=== PATIENT | female | born 1930 | race American Indian/Alaskan Native ===

== ENCOUNTER 2020-01-18 21:21 | Inpatient (IN) | payer MEDICARE ==
[2020-01-18] MEDS ORDERED: ASPIRIN 325 MG TAB PO ONE (21:33)
--- NOTE | 2020-01-18 21:36 | Emergency Department Report ---
ED Chest Pain HPI - General Chief Complaint: Chest Pain Stated Complaint: BRADLY PUI?: Yes Time Seen by Provider: 01/18/20 21:32 Source: EMS, old records reviewed Mode of arrival: Stretcher Limitations: Altered Mental Status, Physical Limitation - History of Present Illness Initial Comments: Patient is an 89-year-old female that presents emergency room with altered mental status, chest pain, shortness of breath, hypoxia. Patient brought in by EMS. Report received from EMS. Patient was transferred here [facility]. Patient's complaint was chest pain and shortness of breath. Patient was found to be hypoxic by EMS. Patient is currently altered. Patient is currently oriented x1. MD Complaint: chest pain -: Sudden Severity scale (0 -10): 0 - Related Data Allergies Allergy/AdvReac Type Severity Reaction Status Date / Time amoxicillin Allergy Unknown Verified 12/08/19 12:14 codeine Allergy Unknown Verified 12/08/19 12:14 diphenhydramine Allergy Unknown Verified 12/08/19 12:14 pentazocine Allergy Unknown Verified 12/08/19 12:14 propoxyphene Allergy Unknown Verified 12/08/19 12:14 Sulfa (Sulfonamide Allergy Unknown Verified 12/08/19 12:14 Antibiotics) triamterene Allergy Unknown Verified 12/08/19 12:14 Heart Score - HEART Score History: Moderately suspicious EKG: Normal Age: > 65 Risk factors: > 3 risk factors or hx of atherosclerotic disease Troponin: < normal limit HEART Score: 5 ED Review of Systems ROS: Stated complaint: BRADLY Other details as noted in HPI Comment: Unobtainable due to pts medical conditions ED Past Medical Hx - Past Medical History Previous Medical History?: Yes Hx Hypertension: Yes Hx Congestive Heart Failure: Yes Hx Dementia: Yes - Surgical History Past Surgical History?: No - Family History Family history: no significant - Social History Smoking Status: Unknown if ever smoked Substance Use Type: None ED Physical Exam - General Limitations: Altered Mental Status, Physical Limitation General appearance: alert, in no apparent distress - Head Head exam: Present: atraumatic, normocephalic - Eye Eye exam: Present: normal appearance - ENT ENT exam: Present: mucous membranes moist - Neck Neck exam: Present: normal inspection - Respiratory Respiratory exam: Present: normal lung sounds bilaterally. Absent: respiratory distress - Cardiovascular Cardiovascular Exam: Present: regular rate, normal rhythm. Absent: systolic murmur, diastolic murmur, rubs, gallop - GI/Abdominal GI/Abdominal exam: Present: soft, normal bowel sounds. Absent: distended, tenderness, guarding - Extremities Exam Extremities exam: Present: normal inspection - Back Exam Back exam: Present: normal inspection - Neurological Exam Neurological exam: Present: altered (Patient is oriented x1) - Expanded Neurological Exam Expanded Best Eye Response ([place]): (2) open to pain Best Motor Response ([place]): (6) obeys commands Best Verbal Response ([place]): (4) confused conversation [place] Total: 12 - Psychiatric Psychiatric exam: Present: normal affect, normal mood - Skin Skin exam: Present: warm, dry, intact, normal color. Absent: rash ED Course Vital Signs 01/18/20 21:28 Temperature 97.8 F Pulse Rate 68 Respiratory 16 Rate Blood Pressure 144/71 [Left] O2 Sat by Pulse 99 Oximetry - Reevaluation(s) Reevaluation #1: Initial evaluation done. Patient found to be hypoxic. Patient is 88 to 90% on room air. Patient placed on 2 to 3 L. 01/18/20 21:32 Reevaluation #2: Patient's oxygen saturation improved with oxygen. Patient resting in bed comfortably. Patient will be given antibiotics and fluids. I discussed all results with patient. I discussed plan of care with patient. Patient agrees with plan of care and admission. Patient to be admitted to the hospitalist service. 01/18/20 23:33 - Consultations Consultation #1: Hospitalist consulted for admission. Hospitalist to admit patient. 01/18/20 23:33 Consultation #2: COVID order set placed. ID consult placed. 01/18/20 23:39 ITALO score - Italo Score Age > 65: (1) Yes Aspirin use within the Past 7 Days: (1) Yes 3 or more CAD Risk Factors: (1) Yes 2 or more Angina events in past 24 hrs: (0) No Known CAD with more than 50% Stenosis: (0) No Elevated Cardiac Markers: (0) No ST Deviation Greater than 0.5mm: (0) No ITALO Score: 3 ED Medical Decision Making - Lab Data Result diagrams: 01/18/20 21:38 01/18/20 21:38 - EKG Data -: EKG Interpreted by Me EKG shows normal: sinus rhythm - Radiology Data Radiology results: report reviewed CHEST 1 VIEW INDICATION / CLINICAL INFORMATION: Chest Pain. COMPARISON: None available. FINDINGS: SUPPORT DEVICES: None. HEART / MEDIASTINUM: Probably enlarged left border is obscured. LUNGS / PLEURA: There is moderate sized left pleural effusion present. I suspect there is parenchymal disease within the left lung base. Right lung is clear. No interstitial pulmonary edema. No pneumothorax. ADDITIONAL FINDINGS: No significant additional findings. IMPRESSION: 1. Prominent pleural-parenchymal disease within the left lung probably representing a combination of pneumonia and pleural effusion. Close radiographic follow-up is recommended as underlying neoplasm cannot be excluded. CT head/brain wo con INDICATION / CLINICAL INFORMATION: Altered Mental Status. TECHNIQUE: Axial CT imaging of the brain was obtained without contrast. Coronal and sagittal reformatted imaging obtained and reviewed. All CT scans at this location are performed using CT dose reduction for ALARA by means of automated exposure control. COMPARISON: Prior head CT 12/08/2019 FINDINGS: No intracranial hemorrhage, mass, or midline shift. No extra-axial fluid collection or suggestion of acute territorial infarction. Ventricular system and basilar cisterns are normal for the degree of atrophy present. No definite area of acute ischemia. There is age-a ppropriate cerebral and cerebellar atrophy. 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 This finding is unchanged compared with prior exams. Visualized paranasal sinuses and mastoid air cells are well aerated and clear. No calvarial abnormality. IMPRESSION: 1. Age-related changes. 2. No acute intracranial abnormality or significant interval change from prior exam. - Medical Decision Making Patient is an 89-year-old female that presents emergency room with complaints of chest pain shortness of breath. Patient is altered. It is unclear what the patient's baseline mentation is. Patient presents from a nursing facility. Due to the patient's altered mental status a CT of the head was done it was negative for acute findings. Patient's labs were done and they were essentially unremarkable except for anemia. Patient had a chest x-ray which shows a left- sided pneumonia. Patient given antibiotics and fluids. Due to the fact that there is a risk for a COVID-19 infection, and ID consult was placed as well as the COVID protocol. Patient given Zithromax and Decadron and Rocephin. Patient admitted to the hospitalist service. Upon initial evaluation, the patient was found to be hypoxic was placed on oxygen via nasal cannula and her oxygen and saturation improved. - Differential Diagnosis Pneumonia, chest pain, shortness of breath, hypoxia, COVID, Critical Care Time: Yes Critical care time in (mins) excluding proc time.: 35 Critical care attestation.: If time is entered above; I have spent that time in minutes in the direct care of this critically ill patient, excluding procedure time. Critical Care Time: 35 minutes ED Disposition Clinical Impression: Person under investigation for COVID-19, SOB (shortness of breath), Hypoxia Pneumonia Qualifiers: Pneumonia type: due to unspecified organism Laterality: left Lung location: unspecified part of lung Qualified Code(s): J18.9 - Pneumonia, unspecified organism Chest pain Qualifiers: Chest pain type: unspecified Qualified Code(s): R07.9 - Chest pain, unspecified Anemia Qualifiers: Anemia type: unspecified type Qualified Code(s): D64.9 - Anemia, unspecified Altered mental state Qualifiers: Altered mental status type: unspecified Qualified Code(s): R41.82 - Altered mental status, unspecified Disposition: DC-09 OP ADMIT IP TO THIS HOSP Is pt being admited?: Yes Does the pt Need Aspirin: No Condition: Critical Time of Disposition: 23:39
[2020-01-18 22:22] LABS: Alanine Aminotransferase 17 units/L (7-56); Albumin 2.9 g/dL (3.9-5); Blood Urea Nitrogen 17 mg/dL (7-17); Calcium 8.5 mg/dL (8.4-10.2); Hemolysis Index 8
[2020-01-18 22:26] LABS: BUN/Creatinine Ratio 28
[2020-01-18 22:38] LABS: Basophils % (Auto) 0.2 % (0.0-1.8); Eosinophils % (Auto) 0.2 % (0.0-4.3); Hematocrit 27.4 % (30.3-42.9); Lymphocytes % (Auto) 10.1 % (13.4-35.0); Mean Corpuscular HGB Conc 33 % (30-34); Mean Corpuscular Volume 82 fl (79-97); Monocytes # (Auto) 1.2 K/mm3 (0.0-0.8); Monocytes % (Auto) 12.1 % (0.0-7.3); Platelet Count 290 K/mm3 (140-440); Red Blood Count 3.34 M/mm3 (3.65-5.03); Red Cell Distribution Width 17.1 % (13.2-15.2)
--- NOTE | 2020-01-18 22:57 | Cat Scan Report ---
CT head/brain wo con INDICATION / CLINICAL INFORMATION: Altered Mental Status. TECHNIQUE: Axial CT imaging of the brain was obtained without contrast. Coronal and sagittal reformatted imaging obtained and reviewed. All CT scans at this location are performed using CT dose reduction for ALAR A by means of automated exposure control. COMPARISON: Prior head CT 12/08/2019 FINDINGS: No intracranial hemorrhage, mass, or midline shift. No extra-axial fluid collection or suggestion of acute territorial infarction. Ventricular system and basilar cisterns are normal for the degree of at rophy present. No definite area of acute ischemia. There is age-appropriate cerebral and cerebellar a trophy. 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 This finding is unchanged compared with prior exams. Visualized paranasal sinuses and mastoid air cells are well aerated and clear. No calvarial abnormali ty. IMPRESSION: 1. Age-related changes. 2. No acute intracranial abnormality or significant interval change from prior exam. Signer Name: Leora Flores MD Signed: 01/18/2020 10:52 PM Workstation Name: [id number]
--- NOTE | 2020-01-18 23:04 | XRay Report ---
CHEST 1 VIEW INDICATION / CLINICAL INFORMATION: Chest Pain. COMPARISON: None available. FINDINGS: SUPPORT DEVICES: None. HEART / MEDIASTINUM: Probably enlarged left border is obscured. LUNGS / PLEURA: There is moderate sized left pleural effusion present. I suspect there is parenchymal disease within the left lung base. Right lung is clear. No interstitial pulmonary edema. No pneumoth orax. ADDITIONAL FINDINGS: No significant additional findings. IMPRESSION: 1. Prominent pleural-parenchymal disease within the left lung probably representing a combination of pneumonia and pleural effusion. Close radiographic follow-up is recommended as underlying neoplasm ca nnot be excluded. Signer Name: Leora Flores MD Signed: 01/18/2020 11:00 PM Workstation Name: [id number]
[2020-01-18] MEDS ORDERED: cefTRIAXone/NS 2 GM/100 ML 2 GM/100 ML BAG IV ONE (23:32)
[2020-01-18] MEDS ORDERED: dexAMETHasone 4 MG/ML VIAL IV ONE (23:32)
[2020-01-18] MEDS ORDERED: AZITHROMYCIN 500 MG in SODIUM CHLORIDE 0.9% 250ML 250 ML IV ONE (23:32)
[2020-01-18] MEDS ORDERED: SODIUM CHLORIDE 0.9% 500 ML 500 ML IV ONE (23:36)
[2020-01-19] MEDS ORDERED: MAGNESIUM HYDROXIDE (MOM) ORAL LIQD UDC PO PRN (00:55)
[2020-01-19] MEDS ORDERED: ONDANSETRON 4 MG/2 ML INJ IV PRN (00:55)
--- NOTE | 2020-01-19 01:15 | History and Physical Report ---
History of Present Illness Date of examination: 01/19/20 Date of admission: 01/19/2020 Chief complaint: Aleterd Mental Status History of present illness: 89-year-old -[place] female with known history of hypertension, CHF and dementia presents to the emergency room today with altered mental status, chest pain and shortness of breath. [facility] She was found to be slightly hypoxic by EMS and also was only oriented x1. Patient unable to give any good history and most of the history was obtained from the ER physician. Past History Past Medical History: heart failure, hypertension, other (Dementia) Past Surgical History: Other Social history: other (Unknown) Family history: other (Unknown) Medications and Allergies Allergies Allergy/AdvReac Type Severity Reaction Status Date / Time amoxicillin Allergy Unknown Verified 12/08/19 12:14 codeine Allergy Unknown Verified 12/08/19 12:14 diphenhydramine Allergy Unknown Verified 12/08/19 12:14 pentazocine Allergy Unknown Verified 12/08/19 12:14 propoxyphene Allergy Unknown Verified 12/08/19 12:14 Sulfa (Sulfonamide Allergy Unknown Verified 12/08/19 12:14 Antibiotics) triamterene Allergy Unknown Verified 12/08/19 12:14 Active Meds: Active Medications Acetaminophen (Tylenol) 650 mg PO Q4H PRN PRN Reason: Pain MILD(1-3)/Fever >100.5/MURCIA Ceftriaxone Sodium (Rocephin/Ns 2 Gm/100 Ml) 2 gm in 100 mls @ 200 mls/hr IV Q24HR YOLANDA; Protocol Azithromycin 500 mg/ Sodium (Chloride) 250 mls @ 250 mls/hr IV Q24HR YOLANDA; Protocol Magnesium Hydroxide (Milk Of Magnesia) 30 ml PO Q4H PRN PRN Reason: Constipation Ondansetron HCl (Zofran) 4 mg IV Q8H PRN PRN Reason: Nausea And Vomiting Sodium Chloride (Sodium Chloride Flush Syringe 10 Ml) 10 ml IV BID YOLANDA Sodium Chloride (Sodium Chloride Flush Syringe 10 Ml) 10 ml IV PRN PRN PRN Reason: LINE FLUSH Review of Systems Constitutional: no fever, no chills Cardiovascular: chest pain, no palpitations Respiratory: shortness of breath, no cough Gastrointestinal: no abdominal pain, no nausea, no vomiting, no diarrhea Genitourinary Female: no pelvic pain, no flank pain, no dysuria, no hematuria Musculoskeletal: no neck pain, no low back pain Integumentary: no rash, no pruritis Neurological: no headaches, no confusion Psychiatric: no anxiety, no depression Exam - Constitutional Vitals: Temp Pulse Resp BP Pulse Ox 97.8 F 68 16 144/71 99 01/18/20 21:28 01/18/20 21:28 01/18/20 21:28 01/18/20 21:28 01/18/20 21:28 General appearance: Present: no acute distress, well-nourished - EENT Eyes: Present: PERRL, EOM intact. Absent: scleral icterus ENT: hearing intact, clear oral mucosa, dentition normal - Neck Neck: Present: supple, normal ROM - Respiratory Respiratory effort: normal Respiratory: left: diminished - Cardiovascular Rhythm: regular Heart Sounds: Present: S1 & S2. Absent: gallop, systolic murmur, diastolic murmur, rub - Extremities Extremities: no ischemia, pulses intact, No edema, Full ROM Peripheral Pulses: within normal limits - Abdominal General gastrointestinal: Present: soft, non-tender, non-distended, normal bowel sounds - Integumentary Integumentary: Present: clear, warm, dry. Absent: rash - Musculoskeletal Musculoskeletal: strength equal bilaterally - Psychiatric Psychiatric: appropriate mood/affect, intact judgment & insight, memory intact, cooperative - Neurologic Neurologic: CNII-XII intact, no focal deficits, moves all extremities HEART Score - HEART Score EKG: Normal Age: > 65 Risk factors: > 3 risk factors or hx of atherosclerotic disease Troponin: Troponin T < 0.010 ng/mL (0.00-0.029) 01/18/20 21:38 Troponin: < normal limit Results - Labs CBC & Chem 7: 01/18/20 21:38 01/19/20 00:15 Labs: Abnormal lab results 01/18/20 01/18/20 Range/Units 21:38 21:38 RBC 3.34 L (3.65-5.03) M/mm3 Hgb 9.0 L (10.1-14.3) gm/dl Hct 27.4 L (30.3-42.9) % MCH 27 L (28-32) pg RDW 17.1 H (13.2-15.2) % Lymph % (Auto) 10.1 L (13.4-35.0) % [place] % (Auto) 12.1 H (0.0-7.3) % Lymph # 1.0 L (1.2-5.4) K/mm3 [place] # 1.2 H (0.0-0.8) K/mm3 Seg Neutrophils % 77.4 H (40.0-70.0) % Potassium 3.4 L (3.6-5.0) mmol/L Glucose 110 H (65-100) mg/dL Albumin 2.9 L (3.9-5) g/dL Assessment and Plan - Patient Problems (1) Pneumonia Current Visit: Yes Status: Acute Plan to address problem: Patient placed on empiric IV antibiotics. We will await blood culture result. (2) Altered mental state Current Visit: Yes Status: Acute Plan to address problem: Possibly secondary to the underlying infection. Will monitor mental status. Patient also has a baseline history of dementia. (3) Chest pain Current Visit: Yes Status: Acute Plan to address problem: We will monitor EKG and also check serial cardiac enzymes. Patient will be placed on aspirin, sublingual nitroglycerin and IV morphine as needed for chest pain. (4) Hypoxia Current Visit: Yes Status: Acute Plan to address problem: We will place patient on oxygen and keep O2 saturation greater or equal to 94%. (5) DVT prophylaxis Current Visit: Yes Status: Acute (6) Full code status Current Visit: Yes Status: Acute (7) Person under investigation for COVID-19 Current Visit: Yes Status: Acute Plan to address problem: We will request evaluation by infectious disease. We will place patient on isolation precautions. Patient also placed on IV steroid.
--- NOTE | 2020-01-19 09:39 | Event Note ---
Date: 01/19/20 patient seen and examined 89-year-old black female with history of hypertension CHF and dementia presented to ER from [facility] for altered mental status chest pain and shortness of breath. Chest x-ray suggestive for left lung pneumonia and effusion. COVID-19 test ordered, continue to follow inflammatory markers and IV antibiotics for now.
[2020-01-19] MEDS ORDERED: dexAMETHasone 4 MG/ML VIAL IV SCH (10:00)
[2020-01-19] MEDS: cefTRIAXone/NS 2 GM/100 ML 2 GM/100 ML BAG IV SCH (10:58)
[2020-01-19] MEDS: AZITHROMYCIN 500 MG in SODIUM CHLORIDE 0.9% 250ML 250 ML IV SCH (14:07)
[2020-01-19] MEDS: HEPARIN 5,000 UNIT/1 ML VIAL SUB-Q SCH ×2 (14:09→21:42)
--- NOTE | 2020-01-19 15:05 | Consultation ---
History of Present Illness - Reason for Consult Consult date: 01/19/20 pneumonia Requesting physician: STEPHANY DONOHUE III - History of Present Illness The patient is an 89-year-old female, residential resident with hypertension, CHF, dementia admitted to the hospital with altered mental status. She was found to be slightly hypoxic by EMS. Chest x-ray showed possible left lower lobe pneumonia and pleural effusion. Infectious diseases was consulted for additional evaluation. She has otherwise been afebrile. Labs showed no leukocytosis. D-dimer is elevated at 5313, CRP 19.0, ferritin 375, LDH 321, procalcitonin 0.24. COVID-19 test came back negative. At the time of my evaluation, patient is in no respiratory distress, she is on room air. Review of Systems: Limited due to dementia Past History Past Medical History: heart failure, hypertension, other (Dementia) Past Surgical History: Other Social history: other (Unknown) Family history: other (Unknown) Medications and Allergies Allergies Allergy/AdvReac Type Severity Reaction Status Date / Time amoxicillin Allergy Unknown Verified 12/08/19 12:14 codeine Allergy Unknown Verified 12/08/19 12:14 diphenhydramine Allergy Unknown Verified 12/08/19 12:14 pentazocine Allergy Unknown Verified 12/08/19 12:14 propoxyphene Allergy Unknown Verified 12/08/19 12:14 Sulfa (Sulfonamide Allergy Unknown Verified 12/08/19 12:14 Antibiotics) triamterene Allergy Unknown Verified 12/08/19 12:14 Active Meds: Active Medications Acetaminophen (Tylenol) 650 mg PO Q4H PRN PRN Reason: Pain MILD(1-3)/Fever >100.5/MURCIA Dexamethasone (Decadron) 6 mg IV Q24HR YOLANDA Last Admin: 01/19/20 10:58 Dose: 6 mg Documented by: Heparin Sodium (Porcine) (Heparin) 5,000 unit SUB-Q Q8HR YOLANDA Last Admin: 01/19/20 14:09 Dose: 5,000 unit Documented by: Ceftriaxone Sodium (Rocephin/Ns 2 Gm/100 Ml) 2 gm in 100 mls @ 200 mls/hr IV Q24HR YOLANDA; Protocol Last Admin: 01/19/20 10:58 Dose: 200 mls/hr Documented by: Azithromycin 500 mg/ Sodium (Chloride) 250 mls @ 250 mls/hr IV Q24HR [facility]; Protocol Last Admin: 01/19/20 14:07 Dose: 250 mls/hr Documented by: Magnesium Hydroxide (Milk Of Magnesia) 30 ml PO Q4H PRN PRN Reason: Constipation Ondansetron HCl (Zofran) 4 mg IV Q8H PRN PRN Reason: Nausea And Vomiting Sodium Chloride (Sodium Chloride Flush Syringe 10 Ml) 10 ml IV BID [facility] Last Admin: 01/19/20 10:58 Dose: 10 ml Documented by: Sodium Chloride (Sodium Chloride Flush Syringe 10 Ml) 10 ml IV PRN PRN PRN Reason: LINE FLUSH Physical Examination - Physical Exam Narrative exam: Physical Exam: Constitutional: Awake, confused Head, Ears, Nose: Normocephalic, atraumatic. External ears, nose normal Eyes: Conjunctivae/corneas clear. No icterus. No ptosis. Neck: Supple, no meningeal signs Oral: Unable to examine Cardiovascular: S1, S2 normal. Respiratory: Decreased in left base GI: Soft, non-tender; bowel sounds normal. No peritoneal signs Musculoskeletal: No pedal edema, no cyanosis. Skin: No rash or abscess Hem/Lymphatic: No palpable cervical or supraclavicular nodes. No lymphangitis Psych: no agitation Neurological: Awake, confused - Constitutional Vitals: Vital Signs Temp Pulse Resp BP Pulse Ox 98.1 F 73 22 142/92 94 01/19/20 13:00 01/19/20 13:00 01/19/20 13:00 01/19/20 13:00 01/19/20 13:00 Temperature -Last 24 Hours Temperature 98.1 F Temperature 98.0 F Temperature 97.4 F Temperature 97.4 F Temperature 97.8 F Results - Labs CBC & Chem 7: 01/18/20 21:38 01/19/20 00:15 Labs: Abnormal lab results 01/18/20 01/18/20 01/19/20 Range/Units 21:38 21:38 00:15 RBC 3.34 L (3.65-5.03) M/mm3 Hgb 9.0 L (10.1-14.3) gm/dl Hct 27.4 L (30.3-42.9) % MCH 27 L (28-32) pg RDW 17.1 H (13.2-15.2) % Lymph % (Auto) 10.1 L (13.4-35.0) % [place] % (Auto) 12.1 H (0.0-7.3) % Lymph # 1.0 L (1.2-5.4) K/mm3 [place] # 1.2 H (0.0-0.8) K/mm3 Seg Neutrophils % 77.4 H (40.0-70.0) % D-Dimer 5313.50 H (0-234) ng/mlDDU Potassium 3.4 L (3.6-5.0) mmol/L Glucose 110 H (65-100) mg/dL Ferritin (10.0-200.0) ng/mL Lactate Dehydrogenase (91-180) units/L C-Reactive Protein (0.00-1.30) mg/dL Albumin 2.9 L (3.9-5) g/dL 01/19/20 01/19/20 Range/Units 00:15 00:15 RBC (3.65-5.03) M/mm3 Hgb (10.1-14.3) gm/dl Hct (30.3-42.9) % MCH (28-32) pg RDW (13.2-15.2) % Lymph % (Auto) (13.4-35.0) % [place] % (Auto) (0.0-7.3) % Lymph # (1.2-5.4) K/mm3 [place] # (0.0-0.8) K/mm3 Seg Neutrophils % (40.0-70.0) % D-Dimer (0-234) ng/mlDDU Potassium (3.6-5.0) mmol/L Glucose 102 H (65-100) mg/dL Ferritin 375.4 H (10.0-200.0) ng/mL Lactate Dehydrogenase 321 H (91-180) units/L C-Reactive Protein 19.00 H (0.00-1.30) mg/dL Albumin (3.9-5) g/dL - Imaging and Cardiology Chest x-ray: report reviewed, image reviewed (LLL pneumonia, possible effusion) Assessment and Plan Cultures: COVID PCR: Negative 01/19/2020 blood culture: In process A/P: 89-year-old female, residential resident with hypertension, CHF, dementia admitted to the hospital with altered mental status. She was found to be slightly hypoxic by EMS: #Left lower lobe pneumonia, also possible left pleural effusion #Acute encephalopathy/altered mental status: baseline dementia, seems to be at baseline. #Elevated d-dimer Recs: Check BNP Dexamethasone discontinued. COVID PCR is negative. Ordered UA and urine culture Continue ceftriaxone, azithromycin for 5 days Eval for VTE given elevated d-dimer Paul Shearer MD, FACP [facility] C: [phone] O: [phone] F: [phone]
[2020-01-19] MEDS ORDERED: D5W/0.9% NACL 1,000 ML IV SCH (19:00)
--- NOTE | 2020-01-19 20:21 | Vascular Lab Report ---
DUPLEX DOPPLER LOWER EXTREMITY VEINS, BILATERAL INDICATION / CLINICAL INFORMATION: possible DVt. TECHNIQUE: Duplex doppler imaging was performed through the veins of both lower extremities using venous unruly dandy and other maneuvers. COMPARISON: None available. FINDINGS: RIGHT COMMON FEMORAL VEIN: Negative. RIGHT FEMORAL VEIN: Negative. RIGHT POPLITEAL VEIN: Negative. RIGHT CALF VEINS: Negative. LEFT COMMON FEMORAL VEIN: Negative. LEFT FEMORAL VEIN: Negative. LEFT POPLITEAL VEIN: Negative. LEFT CALF VEINS: Negative. ADDITIONAL FINDINGS: None. IMPRESSION: 1. No sonographic evidence for DVT in either lower extremity. Signer Name: Aren Chang MD Signed: 01/19/2020 8:16 PM Workstation Name: [id number]
[2020-01-19] MEDS: POTASSIUM CHLORIDE 10 MEQ 10 MEQ/100 ML BAG IV SCH ×2 (21:41→23:21)
[2020-01-19] MEDS ORDERED: SODIUM CHLORIDE 0.9% 250ML 250 ML ONE (22:04)
[2020-01-20] MEDS ORDERED: SODIUM CHLORIDE 0.9% 250ML 250 ML IV ONE (05:57)
[2020-01-20] MEDS: HEPARIN 5,000 UNIT/1 ML VIAL SUB-Q SCH ×3 (06:27→21:30)
[2020-01-20] MEDS: cefTRIAXone/NS 2 GM/100 ML 2 GM/100 ML BAG IV SCH (09:13)
[2020-01-20 10:12] LABS: Basophils # (Auto) 0.1 K/mm3 (0.0-0.1); Basophils % (Auto) 0.4 % (0.0-1.8); Hemoglobin 8.8 gm/dl (10.1-14.3); Lymphocytes # (Auto) 0.8 K/mm3 (1.2-5.4); Lymphocytes % (Auto) 6.3 % (13.4-35.0); Mean Corpuscular HGB Conc 33 % (30-34); Mean Corpuscular Volume 81 fl (79-97); Monocytes # (Auto) 0.7 K/mm3 (0.0-0.8); Monocytes % (Auto) 5.2 % (0.0-7.3); Platelet Count 337 K/mm3 (140-440); Red Blood Count 3.31 M/mm3 (3.65-5.03); Red Cell Distribution Width 16.6 % (13.2-15.2)
[2020-01-20 10:19] LABS: INR 1.36 (0.87-1.13)
[2020-01-20 10:26] LABS: Blood Urea Nitrogen 14 mg/dL (7-17); Calcium 8.4 mg/dL (8.4-10.2); Hemolysis Index 8
[2020-01-20 10:29] LABS: BUN/Creatinine Ratio 35
[2020-01-20] MEDS: AZITHROMYCIN 500 MG in SODIUM CHLORIDE 0.9% 250ML 250 ML IV SCH (11:09)
--- NOTE | 2020-01-20 11:31 | Progress Note ---
Assessment and Plan Cultures: COVID PCR: Negative 01/19/2020 blood culture: no growth A/P: 89-year-old female, custodial resident with hypertension, CHF, dementia admitted to the hospital with altered mental status. She was found to be slightly hypoxic by EMS: #Left lower lobe pneumonia, also possible left pleural effusion. BNP 3012, procalcitonin 0.24, CRP 19.0. COVID PCR is negative. #Acute encephalopathy/altered mental status: baseline dementia, seems to be at baseline. #Elevated d-dimer: DVT scan negative. Recs: f/u UA and urine culture, ordered yesterday Continue ceftriaxone, azithromycin for 5 days ?consider left pleural effusion thoracentesis, diagnostic Paul Shearer MD, FACP [facility] ([facility] C: [phone] O: [phone] F: [phone] Subjective Date of service: 01/20/20 Interval history: No fever. Confused. No respiratory distress. On room air. Objective - Exam Narrative Exam: Physical Exam: Constitutional: Awake, confused, no distress Head, Ears, Nose: Normocephalic, atraumatic. External ears, nose normal Eyes: Conjunctivae/corneas clear. No icterus. No ptosis. Neck: Supple, no meningeal signs Oral: Unable to examine Cardiovascular: S1, S2 normal. Respiratory: Decreased in left base GI: Soft, non-tender; bowel sounds normal. No peritoneal signs Musculoskeletal: No pedal edema, no cyanosis. Skin: No rash or abscess Hem/Lymphatic: No palpable cervical or supraclavicular nodes. No lymphangitis Psych: no agitation Neurological: Awake, confused - Constitutional Vitals: Vital Signs Temp Pulse Resp BP Pulse Ox 97.9 F 73 20 186/107 93 01/20/20 03:57 01/19/20 20:57 01/20/20 03:57 01/20/20 03:57 01/19/20 20:57 Temperature -Last 24 Hours Temperature 97.9 F Temperature 98.7 F Temperature 97.4 F Temperature 98.1 F - Labs CBC & Chem 7: 01/20/20 09:09 01/20/20 09:09 Labs: Abnormal lab results 01/19/20 01/20/20 01/20/20 Range/Units 15:23 09:09 09:09 WBC 13.0 H (4.5-11.0) K/mm3 RBC 3.31 L (3.65-5.03) M/mm3 Hgb 8.8 L (10.1-14.3) gm/dl Hct 27.0 L (30.3-42.9) % MCH 27 L (28-32) pg RDW 16.6 H (13.2-15.2) % Lymph % (Auto) 6.3 L (13.4-35.0) % Lymph # 0.8 L (1.2-5.4) K/mm3 Seg Neutrophils % 88.1 H (40.0-70.0) % Seg Neutrophils # 11.4 H (1.8-7.7) K/mm3 PT 17.1 H (12.2-14.9) Sec. INR 1.36 H (0.87-1.13) Sodium (137-145) mmol/L Potassium (3.6-5.0) mmol/L Chloride (98-107) mmol/L Creatinine (0.6-1.2) mg/dL Glucose (65-100) mg/dL NT-Pro-B Natriuret Pep 3012 H (0-900) pg/mL 01/20/20 Range/Units 09:09 WBC (4.5-11.0) K/mm3 RBC (3.65-5.03) M/mm3 Hgb (10.1-14.3) gm/dl Hct (30.3-42.9) % MCH (28-32) pg RDW (13.2-15.2) % Lymph % (Auto) (13.4-35.0) % Lymph # (1.2-5.4) K/mm3 Seg Neutrophils % (40.0-70.0) % Seg Neutrophils # (1.8-7.7) K/mm3 PT (12.2-14.9) Sec. INR (0.87-1.13) Sodium 147 H (137-145) mmol/L Potassium 3.5 L (3.6-5.0) mmol/L Chloride 108.2 H (98-107) mmol/L Creatinine 0.4 L (0.6-1.2) mg/dL Glucose 159 H (65-100) mg/dL NT-Pro-B Natriuret Pep (0-900) pg/mL
--- NOTE | 2020-01-20 15:03 | Progress Note ---
Assessment and Plan --HC associated Pneumonia Patient placed on empiric IV antibiotics. We will await blood culture and sputum cx result. -- Person under investigation for COVID-19 negative for COVID --Acute metabolic encephalopathy Possibly secondary to the underlying infection. Patient also has a baseline history of dementia. Will monitor mental status. -- Chest pain ? We will monitor EKG and also check serial cardiac enzymes. Patient will cont on aspirin, sublingual nitroglycerin and IV morphine as needed for chest pain. -- Acute Hypoxic respiratory failure Patient on oxygen and keep O2 saturation greater or equal to 94%. --Advanced dementia cont supportive care --Left pleural effusion, likely parapneumonic obtain 2d echo, order for thoracentesis --CHF with unknown EF appears compensated, follow 2d echo -- DVT prophylaxis Current Visit: Yes Status: Acute -- Full code status Current Visit: Yes Status: Acute 01/19: patient more alert today but very confused. COVID 19 negative, cont to treat for bacterial PNA. assess for aspiration.. Discussed with daughter by phone Brief History: 89-year-old black female with history of hypertension CHF and dementia presented to ER from halfway facility for altered mental status chest pain and shortness of breath. Chest x-ray suggestive for left lung pneumonia and effusion. COVID-19 test ordered and negative, continue to follow inflammatory markers and IV antibiotics for now. Subjective Date of service: 01/20/20 Interval history: Patient seen and examined. Medical records and medication list reviewed. No acute event overnight noted by the RN. Patient remains very confused and now on restraint Discussed plan of care at bedside with patient's RN. Objective - Exam Narrative Exam: General appearance: Present: slightly agitated, well-nourished, restrained - EENT Eyes: Present: PERRL, EOM intact. Absent: scleral icterus ENT: hearing intact, clear oral mucosa, dentition normal - Neck Neck: Present: supple, normal ROM - Respiratory Respiratory effort: normal Respiratory: left: diminished - Cardiovascular Rhythm: regular Heart Sounds: Present: S1 & S2. Absent: gallop, systolic murmur, diastolic murmur, rub - Extremities Extremities: no ischemia, pulses intact, No edema, Full ROM Peripheral Pulses: within normal limits - Abdominal General gastrointestinal: Present: soft, non-tender, non-distended, normal bowel sounds - Integumentary Integumentary: Present: clear, warm, dry. Absent: rash - Musculoskeletal Musculoskeletal: strength equal bilaterally - Psychiatric Psychiatric: no appropriate mood/affect, no intact judgment & insight, no memory intact, confused - Neurologic Neurologic: CNII-XII intact, no focal deficits, moves all extremities - Constitutional Vitals: Vital Signs - 12hr 01/20/20 01/20/20 01/20/20 03:55 03:57 11:14 Temperature 98.7 F 97.9 F 98.4 F Pulse Rate 73 Respiratory 20 20 22 Rate Blood Pressure 93/38 186/107 129/73 O2 Sat by Pulse 95 Oximetry - Labs CBC & Chem 7: 01/20/20 09:09 01/22/20 09:45 Labs: Abnormal lab results 01/19/20 01/20/20 01/20/20 Range/Units 15:23 09:09 09:09 WBC 13.0 H (4.5-11.0) K/mm3 RBC 3.31 L (3.65-5.03) M/mm3 Hgb 8.8 L (10.1-14.3) gm/dl Hct 27.0 L (30.3-42.9) % MCH 27 L (28-32) pg RDW 16.6 H (13.2-15.2) % Lymph % (Auto) 6.3 L (13.4-35.0) % Lymph # 0.8 L (1.2-5.4) K/mm3 Seg Neutrophils % 88.1 H (40.0-70.0) % Seg Neutrophils # 11.4 H (1.8-7.7) K/mm3 PT 17.1 H (12.2-14.9) Sec. INR 1.36 H (0.87-1.13) Sodium (137-145) mmol/L Potassium (3.6-5.0) mmol/L Chloride (98-107) mmol/L Creatinine (0.6-1.2) mg/dL Glucose (65-100) mg/dL NT-Pro-B Natriuret Pep 3012 H (0-900) pg/mL 01/20/20 Range/Units 09:09 WBC (4.5-11.0) K/mm3 RBC (3.65-5.03) M/mm3 Hgb (10.1-14.3) gm/dl Hct (30.3-42.9) % MCH (28-32) pg RDW (13.2-15.2) % Lymph % (Auto) (13.4-35.0) % Lymph # (1.2-5.4) K/mm3 Seg Neutrophils % (40.0-70.0) % Seg Neutrophils # (1.8-7.7) K/mm3 PT (12.2-14.9) Sec. INR (0.87-1.13) Sodium 147 H (137-145) mmol/L Potassium 3.5 L (3.6-5.0) mmol/L Chloride 108.2 H (98-107) mmol/L Creatinine 0.4 L (0.6-1.2) mg/dL Glucose 159 H (65-100) mg/dL NT-Pro-B Natriuret Pep (0-900) pg/mL HEART Score - HEART Score EKG: Normal Age: > 65 Risk factors: > 3 risk factors or hx of atherosclerotic disease Troponin: Troponin T < 0.010 ng/mL (0.00-0.029) 01/19/20 04:20 Troponin: < normal limit
[2020-01-20] MEDS: D5W/0.45% NACL 1,000 ML IV SCH (16:51)
[2020-01-21] MEDS: ACETAMINOPHEN 325 MG TAB PO PRN (01:23)
[2020-01-21] MEDS: HEPARIN 5,000 UNIT/1 ML VIAL SUB-Q SCH ×3 (06:15→21:38)
[2020-01-21] MEDS: AZITHROMYCIN 500 MG in SODIUM CHLORIDE 0.9% 250ML 250 ML IV SCH (09:34)
[2020-01-21] MEDS: cefTRIAXone/NS 2 GM/100 ML 2 GM/100 ML BAG IV SCH (10:33)
--- NOTE | 2020-01-21 13:35 | Progress Note ---
Assessment and Plan Cultures: COVID PCR: Negative 01/19/2020 blood culture: no growth A/P: 89-year-old female, [place] [facility] resident with hypertension, CHF, dementia admitted to the hospital with altered mental status. She was found to be slightly hypoxic by EMS: #Left lower lobe pneumonia, also possible left pleural effusion. BNP 3012, procalcitonin 0.24, CRP 19.0. COVID PCR is negative. #Acute encephalopathy/altered mental status: baseline dementia, seems to be at baseline. UA and urine culture ordered but not collected. #Elevated d-dimer: DVT scan negative. Recs: Continue ceftriaxone, azithromycin for 5 days ?consider left pleural effusion thoracentesis, diagnostic procalcitonin ordered for AM Paul Shearer MD, FACP [facility] C: [phone] O: [phone] F: [phone] Subjective Date of service: 01/21/20 Interval history: No fever. No respiratory distress. On room air. Objective - Exam Narrative Exam: Physical Exam: Constitutional: Awake, confused, no distress Head, Ears, Nose: Normocephalic, atraumatic. External ears, nose normal Eyes: Conjunctivae/corneas clear. No icterus. No ptosis. Neck: Supple, no meningeal signs Oral: Unable to examine Cardiovascular: S1, S2 normal. Respiratory: Decreased in left base GI: Soft, non-tender; bowel sounds normal. No peritoneal signs Musculoskeletal: No pedal edema, no cyanosis. Skin: No rash or abscess Hem/Lymphatic: No palpable cervical or supraclavicular nodes. No lymphangitis Psych: no agitation Neurological: Awake, confused, but answers basic questions - Constitutional Vitals: Vital Signs Temp Pulse Resp BP Pulse Ox 97.9 F 73 20 170/93 96 01/21/20 06:12 01/21/20 06:12 01/21/20 06:12 01/21/20 06:12 01/21/20 06:12 Temperature -Last 24 Hours Temperature 97.9 F Temperature 99.5 F Temperature 98.0 F - Labs CBC & Chem 7: 01/20/20 09:09 01/20/20 09:09
--- NOTE | 2020-01-21 22:09 | Progress Note ---
Assessment and Plan --HC associated Pneumonia w/o sepsis Patient placed on empiric IV antibiotics. We will await blood culture and sputum cx result. -- Person under investigation for COVID-19 negative for COVID --Acute metabolic encephalopathy Possibly secondary to the underlying infection. Patient also has a baseline history of dementia. Will monitor mental status. -- Chest pain ? likely from LLL PNA We will monitor EKG and also check serial cardiac enzymes. Patient will cont on aspirin, sublingual nitroglycerin and IV morphine as needed for chest pain. -- Acute Hypoxic respiratory failure due to PNA and left pleural effusion Patient on oxygen and keep O2 saturation greater or equal to 94%. --Advanced dementia cont supportive care --Left pleural effusion, likely parapneumonic obtain 2d echo, order for thoracentesis --CHF with unknown EF appears compensated, follow 2d echo -- DVT prophylaxis Current Visit: Yes Status: Acute -- Full code status Current Visit: Yes Status: Acute 01/19: patient more alert today but very confused. COVID 19 negative, cont to treat for bacterial PNA. assess for aspiration.. Discussed with daughter by phone 01/20: patient remains pleasantly confused, restrained. will follow 2d echo, ordered for thoracentesis Brief History: 89-year-old black female with history of hypertension CHF and dementia presented to ER from senior living facility for altered mental status chest pain and shortness of breath. Chest x-ray suggestive for left lung pneumonia and effusion. COVID-19 test ordered and negative, continue to follow inflammatory markers and IV antibiotics for now. Subjective Date of service: 01/21/20 Interval history: Patient seen and examined. Medical records and medication list reviewed. No acute event overnight noted by the RN. Patient remains very confused and now on restraint Discussed plan of care at bedside with patient's RN. Objective - Exam Narrative Exam: General appearance: Present: slightly agitated, well-nourished, restrained - EENT Eyes: Present: PERRL, EOM intact. Absent: scleral icterus ENT: hearing intact, clear oral mucosa, dentition normal - Neck Neck: Present: supple, normal ROM - Respiratory Respiratory effort: normal Respiratory: left: diminished - Cardiovascular Rhythm: regular Heart Sounds: Present: S1 & S2. Absent: gallop, systolic murmur, diastolic murmur, rub - Extremities Extremities: no ischemia, pulses intact, No edema, Full ROM Peripheral Pulses: within normal limits - Abdominal General gastrointestinal: Present: soft, non-tender, non-distended, normal bowel sounds - Integumentary Integumentary: Present: clear, warm, dry. Absent: rash - Musculoskeletal Musculoskeletal: strength equal bilaterally - Psychiatric Psychiatric: no appropriate mood/affect, no intact judgment & insight, no memory intact, confused - Neurologic Neurologic: CNII-XII intact, no focal deficits, moves all extremities - Constitutional Vitals: Vital Signs - 12hr 01/21/20 01/21/20 01/21/20 11:26 13:00 16:10 Temperature 98.6 F 98.0 F Pulse Rate 75 73 Pulse Rate [ 73 From Monitor] Respiratory 20 20 20 Rate Blood Pressure 138/72 158/84 O2 Sat by Pulse 95 95 95 Oximetry - Labs CBC & Chem 7: 01/20/20 09:09 01/22/20 09:45 HEART Score - HEART Score EKG: Normal Age: > 65 Risk factors: > 3 risk factors or hx of atherosclerotic disease Troponin: Troponin T < 0.010 ng/mL (0.00-0.029) 01/19/20 04:20 Troponin: < normal limit
--- NOTE | 2020-01-21 23:22 | XRay Report ---
CHEST 1 VIEW, 01/21/2020 9:58 PM CLINICAL INFORMATION/INDICATION: Pneumonia COMPARISON: Chest radiograph, 01/18/2020 FINDINGS: SUPPORT DEVICES: None. HEART: There is stable moderate enlargement of the cardiac silhouette. LUNGS/PLEURA: Pleuroparenchymal opacity throughout the left lower lobe does not appear significantly changed. The right lung remains clear. ADDITIONAL FINDINGS: No additional acute findings. IMPRESSION: 1. Stable appearance of pleuroparenchymal opacity within the left lower lobe. This may be secondary t o a combination of airspace disease and pleural effusion. 2. Stable enlargement of the cardiac silhouette. Signer Name: Aida Peters MD Signed: 01/21/2020 11:17 PM Workstation Name: [id number]
[2020-01-22] MEDS: D5W/0.45% NACL 1,000 ML IV SCH (06:18)
[2020-01-22] MEDS: HEPARIN 5,000 UNIT/1 ML VIAL SUB-Q SCH ×3 (07:25→21:02)
[2020-01-22] MEDS ORDERED: hydrALAZINE 20 MG/1 ML INJ IV PRN (08:32)
[2020-01-22 10:22] LABS: BUN/Creatinine Ratio 12; Blood Urea Nitrogen 6 mg/dL (7-17); Calcium 8.4 mg/dL (8.4-10.2); Hemolysis Index 5
[2020-01-22] MEDS: amLODIPine 10 MG TAB PO SCH (11:26)
[2020-01-22] MEDS: cefTRIAXone/NS 2 GM/100 ML 2 GM/100 ML BAG IV SCH (11:26)
[2020-01-22] MEDS ORDERED: POTASSIUM CHLORIDE ER 20 MEQ TAB PO ONE (12:00)
[2020-01-22] MEDS: AZITHROMYCIN 500 MG in SODIUM CHLORIDE 0.9% 250ML 250 ML IV SCH (12:04)
--- NOTE | 2020-01-22 13:22 | Progress Note ---
Assessment and Plan Cultures: COVID PCR: Negative 01/19/2020 blood culture: no growth A/P: 89-year-old female, intermediate resident with hypertension, CHF, dementia admitted to the hospital with altered mental status. She was found to be slightly hypoxic by EMS: #Left lower lobe pneumonia, also possible left pleural effusion. BNP 3012, procalcitonin 0.24, CRP 19.0. COVID PCR is negative. Repeat procal is <0.05 #Acute encephalopathy/altered mental status: baseline dementia, seems to be at baseline. UA and urine culture ordered but not collected. #Elevated d-dimer: DVT scan negative. Recs: Continue ceftriaxone, azithromycin for 5 days. Procal is low f/u left pleural effusion thoracentesis, diagnostic anticipate stopping abx soon Palu Shearer MD, FACP [facility] ([facility] C: [phone] O: [phone] F: [phone] Subjective Date of service: 01/22/20 Interval history: No fever. No respiratory distress. On room air. Objective - Exam Narrative Exam: Physical Exam: Constitutional: Awake, confused, no distress Head, Ears, Nose: Normocephalic, atraumatic. External ears, nose normal Eyes: Conjunctivae/corneas clear. No icterus. No ptosis. Neck: Supple, no meningeal signs Oral: Unable to examine Cardiovascular: S1, S2 normal. Respiratory: Decreased in left base GI: Soft, non-tender; bowel sounds normal. No peritoneal signs Musculoskeletal: No pedal edema, no cyanosis. Skin: No rash or abscess Hem/Lymphatic: No palpable cervical or supraclavicular nodes. No lymphangitis Psych: no agitation Neurological: Awake, confused, but answers basic questions - Constitutional Vitals: Vital Signs Temp Pulse Resp BP Pulse Ox 97.8 F 78 20 172/84 94 01/22/20 05:39 01/22/20 10:00 01/22/20 05:39 01/22/20 06:54 01/22/20 05:39 Temperature -Last 24 Hours Temperature 97.8 F Temperature 98.0 F Temperature 98.0 F - Labs CBC & Chem 7: 01/20/20 09:09 01/22/20 09:45 Labs: Abnormal lab results 08/24/20 Range/Units 09:45 Potassium 2.9 L* (3.6-5.0) mmol/L BUN 6 L (7-17) mg/dL Creatinine 0.5 L (0.6-1.2) mg/dL Glucose 106 H (65-100) mg/dL
[2020-01-22] MEDS: POTASSIUM CHLORIDE 10 MEQ 10 MEQ/100 ML BAG IV SCH ×2 (13:25→13:31)
--- NOTE | 2020-01-22 14:02 | Procedure Note ---
Date of procedure: 01/22/20 Pre-op diagnosis: left pleural effusion Post-op diagnosis: same Procedure: US thoracentesis, left Findings: moderate left pleural effusion Anesthesia: local Surgeon: PETE FERRARA Estimated blood loss: none Pathology: list (120cc) Specimen disposition: to lab Condition: stable Disposition: floor
--- NOTE | 2020-01-22 14:59 | Progress Note ---
Assessment and Plan --HC associated Pneumonia w/o sepsis Patient placed on empiric IV antibiotics. We will await blood culture and sputum cx result. -- Person under investigation for COVID-19 negative for COVID --Acute metabolic encephalopathy Possibly secondary to the underlying infection. Patient also has a baseline history of dementia. Will monitor mental status. -- Chest pain ? likely from LLL PNA We will monitor EKG and also check serial cardiac enzymes. Patient will cont on aspirin, sublingual nitroglycerin and IV morphine as needed for chest pain. -- Acute Hypoxic respiratory failure due to PNA and left pleural effusion Patient on oxygen and keep O2 saturation greater or equal to 94%. --Advanced dementia cont supportive care --Left pleural effusion, likely parapneumonic obtain 2d echo, order for thoracentesis consult pulmonary --CHF with unknown EF appears compensated, follow 2d echo --hypokalemia, replete -- DVT prophylaxis Current Visit: Yes Status: Acute -- Full code status Current Visit: Yes Status: Acute 01/19: patient more alert today but very confused. COVID 19 negative, cont to treat for bacterial PNA. assess for aspiration.. Discussed with daughter by phone 01/20: patient remains pleasantly confused, restrained. will follow 2d echo, ordered for thoracentesis 01/21: s/p thoracentesis and 2d echo today, will follow result. cont abx Brief History: 89-year-old black female with history of hypertension CHF and dementia presented [facility] ER from [facility] for altered mental status chest pain and shortness of breath. Chest x-ray suggestive for left lung pneumonia and effusion. COVID-19 test ordered and negative, continue to follow inflammatory markers and IV antibiotics for now. Subjective Date of service: 01/22/20 Interval history: Patient seen and examined. Medical records and medication list reviewed. No acute event overnight noted by the RN. Patient remains very confused and now on restraint Discussed plan of care at bedside with patient's RN. Objective - Exam Narrative Exam: General appearance: Present: slightly agitated, well-nourished, restrained - EENT Eyes: Present: PERRL, EOM intact. Absent: scleral icterus ENT: hearing intact, clear oral mucosa, dentition normal - Neck Neck: Present: supple, normal ROM - Respiratory Respiratory effort: normal Respiratory: left: diminished - Cardiovascular Rhythm: regular Heart Sounds: Present: S1 & S2. Absent: gallop, systolic murmur, diastolic murmur, rub - Extremities Extremities: no ischemia, pulses intact, No edema, Full ROM Peripheral Pulses: within normal limits - Abdominal General gastrointestinal: Present: soft, non-tender, non-distended, normal bowel sounds - Integumentary Integumentary: Present: clear, warm, dry. Absent: rash - Musculoskeletal Musculoskeletal: strength equal bilaterally - Psychiatric Psychiatric: no appropriate mood/affect, no intact judgment & insight, no memory intact, confused - Neurologic Neurologic: CNII-XII intact, no focal deficits, moves all extremities - Constitutional Vitals: Vital Signs - 12hr 01/22/20 01/22/20 01/22/20 05:39 06:54 10:00 Temperature 97.8 F Pulse Rate 70 72 78 Pulse Rate [ From Monitor] Respiratory 20 Rate Blood Pressure 191/90 Blood Pressure 172/84 [Left] O2 Sat by Pulse 94 Oximetry 01/22/20 12:00 Temperature Pulse Rate Pulse Rate [ 78 From Monitor] Respiratory 18 Rate Blood Pressure Blood Pressure [Left] O2 Sat by Pulse 97 Oximetry - Labs CBC & Chem 7: 01/22/20 23:00 01/22/20 09:45 Labs: Abnormal lab results 01/22/20 Range/Units 09:45 Potassium 2.9 L* (3.6-5.0) mmol/L BUN 6 L (7-17) mg/dL Creatinine 0.5 L (0.6-1.2) mg/dL Glucose 106 H (65-100) mg/dL HEART Score - HEART Score EKG: Normal Age: > 65 Risk factors: > 3 risk factors or hx of atherosclerotic disease Troponin: Troponin T < 0.010 ng/mL (0.00-0.029) 01/19/20 04:20 Troponin: < normal limit
--- NOTE | 2020-01-22 15:04 | Ultrasound Report ---
Ultrasound-guided thoracentesis HISTORY: left pleural effusion. COMPARISON: AP chest performed yesterday PROCEDURE: The risks (including but not limited to bleeding, infection, and pneumothorax) and benefi ts were explained to the patient and informed consent was obtained. A time out procedure was perform ed. Ultrasound was used to evaluate the left pleural effusion and locate the optimal site for needle entr y. Once the skin was marked, the procedure site was prepped and draped in the usual sterile fashion and lidocaine was used for local anesthesia. A skin ap was made and a 6-[place] thoracentesis [address] ter was placed. The patient was monitored closely throughout the procedure, and a total of 1000 mL o f blood-tinged fluid was aspirated. Samples were sent to the lab for further evaluation per the prim florian clinicians orders. The patient tolerated the procedure well with no complications. A post-procedure chest x-ray was imm ediately ordered. IMPRESSION: Successful thoracentesis as above with a total of 1000 mL of blood-tinged fluid aspirated . Signer Name: Samuel Rowe Jr, MD Signed: 01/22/2020 3:00 PM Workstation Name: [id number]
[2020-01-22] MEDS ORDERED: SODIUM CHLORIDE 0.9% 250ML 250 ML ONE (15:26)
[2020-01-22] MEDS: ACETAMINOPHEN 325 MG TAB PO PRN (16:11)
--- NOTE | 2020-01-22 16:44 | XRay Report ---
XR chest 1V ap INDICATION / CLINICAL INFORMATION: left pleural effusion, recent thora. COMPARISON: None available. FINDINGS: SUPPORT DEVICES: None. HEART / MEDIASTINUM: Prominent but unchange.d . LUNGS / PLEURA: Recent left thoracentesis with small persistent but decreased size of pleural effusio n. Interval development of a small left pneumothorax. ADDITIONAL FINDINGS: No significant additional findings. IMPRESSION: 1. Small left pneumothorax after thoracentesis. 2. Small persistent but decreased left pleural effusion. Informed nurse taking care of patient at 336. Signer Name: Maximo Rosales MD Signed: 01/22/2020 4:40 PM Workstation Name: [id number]
[2020-01-22 17:56] LABS: Total Cells Counted 100 /mm3
[2020-01-22] MEDS ORDERED: oxyCODONE /ACETAMINOPHEN 5-325MG TAB PO PRN (18:09)
[2020-01-22] MEDS: hydrALAZINE 25 MG TAB PO SCH (21:04)
--- NOTE | 2020-01-22 23:03 | Consultation ---
History of Present Illness Consult date: 01/22/20 Reason for consult: dyspnea, pleural effusion History of present illness: 89-year-old -Turkmen female with known history of hypertension, CHF and dementia presents to the emergency room today with altered mental status, chest pain and shortness of breath. Patient was [facility] in by EMS [facility]. She was found to be Hypoxic. Patient placed on O2. O2 saturation reported 94%. Obtaining ABGs. Patient unable to give any good history . Most of the information obtained by reviewing the chart. Patients chest xray on admission reported left sided pneumonia and left pleural effusion. Patient undergone left thoracentesis by interventional radiology. Patient developed small pneumothorax. Patient not symptomatic from that. It is very small pneumothorax does not warrant chest tube. Follow with repeat chest xray. Patient has history of heart failure, hypertension and dementia. Patients smoking history, alcohol history and drug history not known. Patient allergic to multiple medications. Amoxacillin, Codeine, Diphenhydramine, Pentazocin. Patients COVID test is negative. Patient afebrile and has leukocytosis. Patient is on ceftrioxane and zithromax. Pleural fluid is red and has numerous RBCs. Rest of the pleural fluid results pending. Past History Past Medical History: heart failure, hypertension, other (Dementia) Past Surgical History: Other Social history: other (Unknown) Family history: other (Unknown) Medications and Allergies Allergies Allergy/AdvReac Type Severity Reaction Status Date / Time amoxicillin Allergy Unknown Verified 12/08/19 12:14 codeine Allergy Unknown Verified 12/08/19 12:14 diphenhydramine Allergy Unknown Verified 12/08/19 12:14 pentazocine Allergy Unknown Verified 12/08/19 12:14 propoxyphene Allergy Unknown Verified 12/08/19 12:14 Sulfa (Sulfonamide Allergy Unknown Verified 12/08/19 12:14 Antibiotics) triamterene Allergy Unknown Verified 12/08/19 12:14 Active Meds: Active Medications Acetaminophen (Tylenol) 650 mg PO Q4H PRN PRN Reason: Pain MILD(1-3)/Fever >100.5/MURCIA Last Admin: 01/22/20 16:11 Dose: 650 mg Documented by: Amlodipine Besylate (Amlodipine) 10 mg PO QDAY YOLANDA Last Admin: 01/22/20 11:26 Dose: 10 mg Documented by: Azithromycin (Zithromax) 500 mg PO QDAY [facility] Stop: 01/23/20 10:01 Heparin Sodium (Porcine) (Heparin) 5,000 unit SUB-Q Q8HR [facility] Last Admin: 01/22/20 21:02 Dose: 5,000 unit Documented by: Hydralazine HCl (Apresoline) 25 mg PO Q8HR [facility] Last Admin: 01/22/20 21:04 Dose: 25 mg Documented by: Hydralazine HCl (Apresoline) 5 mg IV Q30MIN PRN PRN Reason: Hypertension Ceftriaxone Sodium (Rocephin/Ns 2 Gm/100 Ml) 2 gm in 100 mls @ 200 mls/hr IV Q24HR [facility]; Protocol Stop: 01/23/20 10:29 Last Admin: 01/22/20 11:26 Dose: 200 mls/hr Documented by: Magnesium Hydroxide (Milk Of Magnesia) 30 ml PO Q4H PRN PRN Reason: Constipation Ondansetron HCl (Zofran) 4 mg IV Q8H PRN PRN Reason: Nausea And Vomiting Oxycodone/Acetaminophen (Percocet 5/325) 1 tab PO Q6H PRN PRN Reason: Pain, Moderate (4-6) Sodium Chloride (Sodium Chloride Flush Syringe 10 Ml) 10 ml IV BID [facility] Last Admin: 01/22/20 21:06 Dose: 10 ml Documented by: Sodium Chloride (Sodium Chloride Flush Syringe 10 Ml) 10 ml IV PRN PRN PRN Reason: LINE FLUSH Review of Systems All systems: negative Physical Examination Vital signs: Vital Signs Temp Pulse Resp BP Pulse Ox 97.8 F 68 16 144/71 99 01/18/20 21:28 01/18/20 21:28 01/18/20 21:28 01/18/20 21:28 01/18/20 21:28 General appearance: no acute distress, alert, agitated Eyes: non-icteric ENT: oropharynx moist Neck: supple, no lymphadenopathy Ascultation: Left: diminished breath sounds Cardiovascular: regular rate and rhythm Gastrointestinal: normoactive bowel sounds, soft, non-tender Integumentary: normal Extremities: no cyanosis, no edema Musculoskeletal: no deformities Gait: other (Unable to assess at this time.) non-focal exam, pupils equal and round other (Agitated.) Results - Laboratory Findings CBC and BMP: 01/20/20 09:09 01/22/20 09:45 PT/INR, D-dimer PT 17.1 Sec. (12.2-14.9) H 01/20/20 09:09 INR 1.36 (0.87-1.13) H 01/20/20 09:09 D-Dimer 5313.50 ng/mlDDU (0-234) H 01/19/20 00:15 Abnormal lab findings: Abnormal Labs 01/18/20 01/18/20 01/19/20 21:38 21:38 00:15 WBC RBC 3.34 L Hgb 9.0 L Hct 27.4 L MCH 27 L RDW 17.1 H Lymph % (Auto) 10.1 L [place] % (Auto) 12.1 H Lymph # 1.0 L [place] # 1.2 H Seg Neutrophils % 77.4 H Seg Neutrophils # PT INR D-Dimer 5313.50 H Sodium Potassium 3.4 L Chloride BUN Creatinine Glucose 110 H Ferritin Lactate Dehydrogenase C-Reactive Protein NT-Pro-B Natriuret Pep Albumin 2.9 L 01/19/20 01/19/20 01/19/20 00:15 00:15 15:23 WBC RBC Hgb Hct MCH RDW Lymph % (Auto) [place] % (Auto) Lymph # [place] # Seg Neutrophils % Seg Neutrophils # PT INR D-Dimer Sodium Potassium Chloride BUN Creatinine Glucose 102 H Ferritin 375.4 H Lactate Dehydrogenase 321 H C-Reactive Protein 19.00 H NT-Pro-B Natriuret Pep 3012 H Albumin 01/20/20 01/20/20 01/20/20 09:09 09:09 09:09 WBC 13.0 H RBC 3.31 L Hgb 8.8 L Hct 27.0 L MCH 27 L RDW 16.6 H Lymph % (Auto) 6.3 L [place] % (Auto) Lymph # 0.8 L [place] # Seg Neutrophils % 88.1 H Seg Neutrophils # 11.4 H PT 17.1 H INR 1.36 H D-Dimer Sodium 147 H Potassium 3.5 L Chloride 108.2 H BUN Creatinine 0.4 L Glucose 159 H Ferritin Lactate Dehydrogenase C-Reactive Protein NT-Pro-B Natriuret Pep Albumin 01/22/20 09:45 WBC RBC Hgb Hct MCH RDW Lymph % (Auto) [place] % (Auto) Lymph # [place] # Seg Neutrophils % Seg Neutrophils # PT INR D-Dimer Sodium Potassium 2.9 L* Chloride BUN 6 L Creatinine 0.5 L Glucose 106 H Ferritin Lactate Dehydrogenase C-Reactive Protein NT-Pro-B Natriuret Pep Albumin - Diagnostic Findings Chest x-ray: report reviewed, image reviewed Additional studies: XR chest 1V ap 01/22/20 INDICATION / CLINICAL INFORMATION: left pleural effusion, recent thora. COMPARISON: None available. FINDINGS: SUPPORT DEVICES: None. HEART / MEDIASTINUM: Prominent but unchange.d . LUNGS / PLEURA: Recent left thoracentesis with small persistent but decreased size of pleural effusion. Interval development of a small left pneumothorax. ADDITIONAL FINDINGS: No significant additional findings. IMPRESSION: 1. Small left pneumothorax after thoracentesis. 2. Small persistent but decreased left pleural effusion. Assessment and Plan 89-year-old -Turkmen female with known history of hypertension, CHF and dementia presents to the emergency room today with altered mental status, chest pain and shortness of breath. Patient was brought in by EMS from a jail facility. She was found to be Hypoxic. Patient unable to give any good history . Most of the information obtained by reviewing the chart. Patients chest xray on admission reported left sided pneumonia and left pleural effusion. Patient undergone left thoracentesis by interventional radiology. Patient developed small pneumothorax. Patient not symptomatic from that. It is very small pneumothorax does not warrant chest tube. Follow with repeat chest xray. Patient has history of heart failure, hypertension and dementia. Patients smoking history, alcohol history and drug history not known. Patient allergic to multiple medications. Amoxacillin, Codeine, Diphenhydramine, Pentazocin. Patients COVID test is negative. Patient afebrile and has leukocytosis. Patient is on ceftrioxane and zithromax. Pleural fluid is red and has numerous RBCs. Rest of the pleural fluid results pending. - Patient Problems (1) Pneumonia Current Visit: Yes Status: Acute Plan to address problem: Patient is on ceftrioxane and zithromax. (2) Pleural effusion, left Current Visit: Yes Status: Acute Plan to address problem: Pleural fluid results pending. (3) Hypoxia Current Visit: Yes Status: Acute Plan to address problem: O2 supplementation 4 litres o2. ABGs on room air. (4) Person under investigation for COVID-19 Current Visit: Yes Status: Acute Plan to address problem: COVID 19 test negative. (5) Pneumothorax, left Current Visit: Yes Status: Acute Plan to address problem: Appears small left loculated pneumothorax post left thoracentesis. Repeat chest xray in AM.
[2020-01-23 00:13] LABS: Hematocrit 31.8 % (30.3-42.9); Hemoglobin 10.5 gm/dl (10.1-14.3)
[2020-01-23] MEDS: hydrALAZINE 25 MG TAB PO SCH ×3 (05:34→21:44)
[2020-01-23] MEDS: HEPARIN 5,000 UNIT/1 ML VIAL SUB-Q SCH ×3 (05:36→21:45)
[2020-01-23] MEDS ORDERED: POTASSIUM CHLORIDE ER 20 MEQ TAB PO ONE (06:22)
[2020-01-23] MEDS: POTASSIUM CHLORIDE 10 MEQ 10 MEQ/100 ML BAG IV SCH ×2 (07:24→10:52)
--- NOTE | 2020-01-23 08:15 | Progress Note ---
Assessment and Plan Assessment and plan: 89-year-old black female with history of hypertension CHF and dementia presented to ER from retirement facility for altered mental status chest pain and shortness of breath. Chest x-ray suggestive for left lung pneumonia and effusion. COVID-19 test ordered and negative, continue to follow inflammatory markers and IV antibiotics for now. Patient underwent thoracentesis fluid analysis is pending. Small pneumothorax was identified post procedure. Also continues with hypokalemia being repleted. 01/19: patient more alert today but very confused. COVID 19 negative, cont to treat for bacterial PNA. assess for aspiration.. Discussed with daughter by phone 01/20: patient remains pleasantly confused, restrained. will follow 2d echo, ordered for thoracentesis 01/21: s/p thoracentesis and 2d echo today, will follow result. cont abx 01/22: Awaiting further data from fluid analysis and also repeat x-ray to ensure pneumothorax resolution. Pulmonary input is appreciated. Will anticipate discharge in a.m. if CBC and other electrolytes are stable with resolution of leukocytosis. Baseline dementia on restraints. Discussed with nursing staff about getting a sitter and she does not need restraints. Chest x-ray removed still with some mild residual pneumothorax no worsening respiratory status noted. HC associated Pneumonia w/o sepsis Patient placed on empiric IV antibiotics. We will await blood culture and sputum cx result. -- Person under investigation for COVID-19 negative for COVID --Acute metabolic encephalopathy Possibly secondary to the underlying infection. Patient also has a baseline history of dementia. Will monitor mental status. -- Chest pain ? likely from LLL PNA We will monitor EKG and also check serial cardiac enzymes. Patient will cont on aspirin, sublingual nitroglycerin and IV morphine as needed for chest pain. -- Acute Hypoxic respiratory failure due to PNA and left pleural effusion Patient on oxygen and keep O2 saturation greater or equal to 94%. --Advanced dementia cont supportive care --Left pleural effusion, likely parapneumonic obtain 2d echo, order for thoracentesis consult pulmonary --CHF with unknown EF appears compensated, follow 2d echo --hypokalemia, replete --Pneumothorax small --DVT prophylaxis Current Visit: Yes Status: Acute -- Full code status Current Visit: Yes Status: Acute History Interval history: Patient seen and examined resting comfortably. But still with some lethargy. Confused. This may be her baseline she is from a retirement. Hospitalist Physical - Physical exam Narrative exam: General appearance: Present: slightly agitated, well-nourished, restrained - EENT Eyes: Present: PERRL, EOM intact. Absent: scleral icterus ENT: hearing intact, clear oral mucosa, dentition normal - Neck Neck: Present: supple, normal ROM - Respiratory Respiratory effort: normal Respiratory: left: diminished - Cardiovascular Rhythm: regular Heart Sounds: Present: S1 & S2. Absent: gallop, systolic murmur, diastolic murmur, rub - Extremities Extremities: no ischemia, pulses intact, No edema, Full ROM Peripheral Pulses: within normal limits - Abdominal General gastrointestinal: Present: soft, non-tender, non-distended, normal bowel sounds - Integumentary Integumentary: Present: clear, warm, dry. Absent: rash - Musculoskeletal Musculoskeletal: strength equal bilaterally - Psychiatric Psychiatric: no appropriate mood/affect, no intact judgment & insight, no memory intact, confused - Neurologic Neurologic: CNII-XII intact, no focal deficits, moves all extremities - Constitutional Vitals: Temp Pulse Resp BP Pulse Ox 97.7 F 80 16 150/108 96 01/23/20 05:15 01/23/20 05:34 01/23/20 05:15 01/23/20 05:34 01/23/20 05:15 General appearance: Present: no acute distress, well-nourished HEART Score - HEART Score EKG: Normal Age: > 65 Risk factors: > 3 risk factors or hx of atherosclerotic disease Troponin: Troponin T < 0.010 ng/mL (0.00-0.029) 01/19/20 04:20 Troponin: < normal limit Results - Labs CBC & Chem 7: 01/23/20 10:55 01/23/20 10:55 Labs: Laboratory Last Values WBC 13.0 K/mm3 (4.5-11.0) H 01/20/20 09:09 RBC 3.31 M/mm3 (3.65-5.03) L 01/20/20 09:09 Hgb 10.5 gm/dl (10.1-14.3) 01/22/20 23:00 Hct 31.8 % (30.3-42.9) 01/22/20 23:00 MCV 81 fl (79-97) 01/20/20 09:09 MCH 27 pg (28-32) L 01/20/20 09:09 MCHC 33 % (30-34) 01/20/20 09:09 RDW 16.6 % (13.2-15.2) H 01/20/20 09:09 Plt Count 337 K/mm3 (140-440) 01/20/20 09:09 Lymph % (Auto) 6.3 % (13.4-35.0) L 01/20/20 09:09 [place] % (Auto) 5.2 % (0.0-7.3) 01/20/20 09:09 Eos % (Auto) 0.0 % (0.0-4.3) 01/20/20 09:09 Baso % (Auto) 0.4 % (0.0-1.8) 01/20/20 09:09 Lymph # 0.8 K/mm3 (1.2-5.4) L 01/20/20 09:09 [place] # 0.7 K/mm3 (0.0-0.8) 01/20/20 09:09 Eos # 0.0 K/mm3 (0.0-0.4) 01/20/20 09:09 Baso # 0.1 K/mm3 (0.0-0.1) 01/20/20 09:09 Seg Neutrophils % 88.1 % (40.0-70.0) H 01/20/20 09:09 Seg Neutrophils # 11.4 K/mm3 (1.8-7.7) H 01/20/20 09:09 PT 17.1 Sec. (12.2-14.9) H 01/20/20 09:09 INR 1.36 (0.87-1.13) H 01/20/20 09:09 D-Dimer 5313.50 ng/mlDDU (0-234) H 01/19/20 00:15 Sodium 142 mmol/L (137-145) 01/22/20 09:45 Potassium 2.9 mmol/L (3.6-5.0) L* 01/22/20 09:45 Chloride 103.3 mmol/L (98-107) 01/22/20 09:45 Carbon Dioxide 27 mmol/L (22-30) 01/22/20 09:45 Anion Gap 15 mmol/L 01/22/20 09:45 BUN 6 mg/dL (7-17) L 01/22/20 09:45 Creatinine 0.5 mg/dL (0.6-1.2) L 01/22/20 09:45 Estimated GFR > 60 ml/min 01/22/20 09:45 BUN/Creatinine Ratio 12 % 01/22/20 09:45 Glucose 106 mg/dL (65-100) H 01/22/20 09:45 Calcium 8.4 mg/dL (8.4-10.2) 01/22/20 09:45 Ferritin 375.4 ng/mL (10.0-200.0) H 01/19/20 00:15 Total Bilirubin 0.60 mg/dL (0.1-1.2) 01/18/20 21:38 AST 22 units/L (5-40) 01/18/20 21:38 ALT 17 units/L (7-56) 01/18/20 21:38 Alkaline Phosphatase 89 units/L (35-129) 01/18/20 21:38 Lactate Dehydrogenase 321 units/L (91-180) H 01/19/20 00:15 Troponin T < 0.010 ng/mL (0.00-0.029) 01/19/20 04:20 C-Reactive Protein 19.00 mg/dL (0.00-1.30) H 01/19/20 00:15 NT-Pro-B Natriuret Pep 3012 pg/mL (0-900) H 01/19/20 15:23 Total Protein 6.6 g/dL (6.3-8.2) 01/18/20 21:38 Albumin 2.9 g/dL (3.9-5) L 01/18/20 21:38 Albumin/Globulin Ratio 0.8 % 01/18/20 21:38 Procalcitonin < 0.05 ng/mL (<0.15) 01/22/20 09:45 Fluid Type Pleural 01/22/20 Unknown Fluid Color Red 01/22/20 Unknown Fluid Appearance Turbid 01/22/20 Unknown Fluid WBC 7 /mm3 01/22/20 Unknown Fluid RBC 90317 /mm3 01/22/20 Unknown Fluid Seg Neutrophils 30.0 % 01/22/20 Unknown Fluid Lymphocytes 67.0 % 01/22/20 Unknown Fluid Reactive Lymphs 0 % 01/22/20 Unknown Fluid Monocytes 3.0 % 01/22/20 Unknown Fluid Eosinophils 0 % 01/22/20 Unknown Fluid Basophils 0 % 01/22/20 Unknown Coronavirus (PCR) Negative (Negative) 01/18/20 Unknown Microbiology: Microbiology 01/22/20 Unknown Pleural Fluid - Pleura,Lt Lung Body Fluid Culture - Preliminary 01/19/20 04:20 Peripheral/Venous Blood Culture - Preliminary NO GROWTH AFTER 72 HOURS 01/19/20 05:26 Peripheral/Venous Blood Culture - Preliminary NO GROWTH AFTER 72 HOURS - Diagnostic Impressions Diagnostic Impressions: Echocardiogram 01/21/20 21:55 Transthoracic Echocardiogram Indication: Pleural effusion BP: 172/84 HR: 76 Conclusions *There is severe calcific aortic stenosis, with mean gradient 66mmHg. *Global left ventricular systolic function is normal. *The estimated ejection fraction is 50-55%. *Moderate concentric left ventricular hypertrophy is observed. *The left and right atria are both mild to moderately dilated. *There is at least mild mitral regurgitation. *There is mild tricuspid regurgitation. *There is mild-moderate pulmonary hypertension. *The right ventricular systolic pressure is calculated at 44 mmHg. Findings Left Ventricle: The left ventricular chamber size is normal. Moderate concentric left ventricular hypertrophy is observed. Global left ventricular systolic function is normal. The estimated ejection fraction is 50-55%. Left Atrium: The left atrium is mild to moderately dilated. Right Ventricle: The right ventricle is slightly dilated. Right Atrium: The right atrium is mild to moderately dilated. Aortic Valve: The aortic valve leaflets are severely thickened with reduced systolic excursion. Severe aortic leaflet calcification is visualized. There is severe aortic stenosis. The mean gradient of the aortic valve is 65.9 mmHg. Mitral Valve: The mitral valve leaflets are mildly thickened. There is mild mitral regurgitation. Tricuspid Valve: The tricuspid valve leaflets are normal. There is mild tricuspid regurgitation. The right ventricular systolic pressure is calculated at 44 mmHg. There is evidence of moderate pulmonary hypertension. Pericardium: There is no pericardial effusion. Aorta: There is no dilatation of the aortic root. Venous: The inferior vena cava appears normal in size. Measurements Volumes/Mass Name Value Normal Range LA ESV SP 4CH (A/L) 20.24 ml - LA ESV SP 2CH (A/L) 32.6 ml - LA ESV BP (A/L) 29.98 ml - LA ESV BP (A/L) index 16.03 ml/m2 - LA ESV SP 4CH (MOD) 17.63 ml - LA ESV SP 2CH (MOD) 32.08 ml - LA ESV BP (MOD) 27.68 ml - LA ESV BP (MOD) index 14.8 ml/m2 - Diastolic/Systolic Function Name Value Normal Range MV E-wave Vmax 0.72 m/sec - MV deceleration time 218.86 msec - MV A-wave Vmax 0.89 m/sec - MV E:A ratio 0.81 ratio - Aortic Valve Name Value Normal Range AV Vmax 4.71 m/sec - AV VTI 108.03 cm - AV peak gradient 88.61 mmHg - AV mean gradient 65.9 mmHg - LVOT Vmax 0.88 m/sec - LVOT VTI 18.37 cm - LVOT peak gradient 3.11 mmHg - LVOT mean gradient 1.83 mmHg - Tricuspid Valve Name Value Normal Range TR Vmax 3.2 m/sec - TR peak gradient 41 mmHg - RAP 3 mmHg - RVSP 44 mmHg - James/IV: Voiding Method Incontinent IV Catheter Type [Left Forearm Peripheral IV ] IV Catheter Type [Left Upper INT / Saline Lock arm] IV Catheter Type [Left Hand] INT / Saline Lock IV Catheter Type [Right Hand] INT / Saline Lock IV Catheter Type [Left INT / Saline Lock Antecubital] Active Medications - Current Medications Current Medications: Generic Name Dose Route Start Last Admin Trade Name Freq PRN Reason Stop Dose Admin Acetaminophen 650 mg 01/19/20 00:55 01/22/20 16:11 Tylenol PO 650 mg Q4H PRN Administration Pain MILD(1-3)/Fever >100.5/MURCIA Amlodipine Besylate 10 mg 01/22/20 10:00 01/22/20 11:26 Amlodipine PO 10 mg QDAY YOLANDA Administration Azithromycin 500 mg 01/23/20 10:00 Zithromax PO 01/23/20 10:01 QDAY YOLANDA Carvedilol 3.125 mg 01/23/20 10:00 Coreg PO BID YOLANDA Furosemide 40 mg 01/23/20 10:00 Lasix PO QDAY [facility] Heparin Sodium (Porcine) 5,000 unit 01/19/20 14:00 01/23/20 05:36 Heparin SUB-Q 5,000 unit Q8HR YOLANDA Administration Hydralazine HCl 25 mg 01/22/20 14:00 01/23/20 05:34 Apresoline PO 25 mg Q8HR YOLANDA Administration Hydralazine HCl 5 mg 01/22/20 08:32 Apresoline IV Q30MIN PRN Hypertension Ceftriaxone Sodium 2 gm in 100 mls @ 200 mls/hr 01/19/20 10:00 01/22/20 11:26 Rocephin/Ns 2 Gm/100 Ml IV 01/23/20 10:29 200 mls/hr Q24HR YOLANDA Administration Protocol Potassium Chloride 10 meq in 100 mls @ 100 mls/hr 01/23/20 07:00 01/23/20 07:24 Kcl 10meq/100ml IV 01/23/20 08:59 100 mls/hr Q1H YOLANDA Administration Magnesium Hydroxide 30 ml 01/19/20 00:55 Milk Of Magnesia PO Q4H PRN Constipation Ondansetron HCl 4 mg 01/19/20 00:55 Zofran IV Q8H PRN Nausea And Vomiting Oxycodone/Acetaminophen 1 tab 01/22/20 18:09 01/23/20 05:40 Percocet 5/325 PO 1 tab Q6H PRN Administration Pain, Moderate (4-6) Quetiapine Fumarate 25 mg 01/23/20 22:00 Seroquel PO QHS YOLANDA Sodium Chloride 10 ml 01/19/20 10:00 01/22/20 21:06 Sodium Chloride Flush Syringe 10 Ml IV 10 ml BID YOLANDA Administration Sodium Chloride 10 ml 01/19/20 00:55 Sodium Chloride Flush Syringe 10 Ml IV PRN PRN LINE FLUSH Nutrition/Malnutrition Assess - Dietary Evaluation Nutrition/Malnutrition Findings: Nutrition Notes Start: 01/19/20 12:52 Freq: Status: Active Protocol: Document 01/22/20 11:01 LIZBET (Rec: 01/22/20 11:05 [email or web address] [email or web address]) Nutrition Notes Initial or Follow up Reassessment Current Diagnosis Hypertension,Heart Failure Other Pertinent Diagnosis Suspected COVID-19, pneu, dementia, AMS Current Diet Mech soft Labs/Tests K 2.9 Pertinent Medications reviewed Height 5 ft 4 in Weight 81.912 kg [place] Body Weight (kg) 54.54 BMI 30.9 Subjective/Other Information Pt remains confused. She has consumed 55% of meals since last assessment. Percent of energy/protein needs met: 79% energy 81% pro Burn Absent Trauma Absent #1 Nutrition Diagnosis Predicted suboptimal energy intake As Evidenced by Signs and Symptoms PO intakes meeting at least 75 % energy and pro needs Diagnosis Progress(for reassessment Resolved documentation) Is patient on ventilator? No Is Patient Ambulatory and/or Out of Bed No REE-([facility]-confined to bed) [phone] Additional Notes Pro needs 1-1.2g/kg adjBW: 68- 82g/day Fluid needs 1ml/kcal Nutrition Intervention Change Diet Order: Continue current diet order Goal #1 PO intakes to continue to meet at least 75% energy and pro needs Follow-Up By: 01/25/20 Additional Comments F/U: intakes, wt
--- NOTE | 2020-01-23 09:16 | XRay Report ---
Chest single view INDICATION: Pneumothorax follow-up IMPRESSION: The small loculated left-sided pneumothorax is not significantly changed from yesterday's exam. Persistent airspace density within the left lower lung. The right lung is clear. Signer Name: John Giordano MD Signed: 01/23/2020 9:11 AM Workstation Name: [id number]
[2020-01-23] MEDS ORDERED: AZITHROMYCIN 250 MG TAB PO SCH (10:00)
--- NOTE | 2020-01-23 10:25 | Progress Note ---
Assessment and Plan 89-year-old -Monegas[place] female with known history of hypertension, CHF and dementia presents to the emergency room today with altered mental status, chest pain and shortness of breath. Patient was brought in by EMS from a longterm facility. She was found to be Hypoxic. Patient unable to give any good history . Most of the information obtained by reviewing the chart. Patients chest xray on admission reported left sided pneumonia and left pleural effusion. Patient undergone left thoracentesis by interventional radiology. Patient developed small pneumothorax. Patient not symptomatic from that. It is very small pneumothorax does not warrant chest tube. Follow with repeat chest xray. Patient has history of heart failure, hypertension and dementia. Patients smoking history, alcohol history and drug history not known. Patient allergic to multiple medications. Amoxacillin, Codeine, Diphenhydramine, Pentazocin. Patients COVID test is negative. Patient afebrile and has leukocytosis. Patient is on ceftrioxane and zithromax. Pleural fluid is red and has numerous RBCs. Rest of the pleural fluid results pending. 01/23/20 Patient awake but confused. No acute respiratory distress. Patient is on 1 litre O2. O2 saturation 98%. Chest xray 01/23/20 reported small left loculated pneumothorax which is unchanged. - Patient Problems (1) Pneumonia Current Visit: Yes Status: Acute Plan to address problem: Patient is on ceftrioxane and zithromax. (2) Pleural effusion, left Current Visit: Yes Status: Acute Plan to address problem: Pleural fluid results pending. (3) Hypoxia Current Visit: Yes Status: Acute Plan to address problem: O2 supplementation 2 litres o2. ABGs on room air still pending. (4) Person under investigation for COVID-19 Current Visit: Yes Status: Acute Plan to address problem: COVID 19 test negative. (5) Pneumothorax, left Current Visit: Yes Status: Acute Plan to address problem: Repeat chest xray to day 01/23/20 reported small left loculated left pneumothorax unchanged. Subjective Date of service: 01/23/20 Interval history: Patient awake but confused. No acute respiratory distress. Patient is on 1 litre O2. O2 saturation 98%. Chest xray 01/23/20 reported small left loculated pneumothorax which is unchanged. Objective Vital Signs - 12hr 01/23/20 01/23/20 01/23/20 01:00 05:15 05:34 Temperature 97.7 F Pulse Rate 80 80 Pulse Rate [ 93 H From Monitor] Respiratory 20 16 Rate Blood Pressure 151/108 150/108 O2 Sat by Pulse 98 96 Oximetry Constitutional: no acute distress, alert, agitated Eyes: non-icteric ENT: oropharynx moist Neck: supple, no lymphadenopathy Ascultation: Left: diminished breath sounds Cardiovascular: regular rate and rhythm Gastrointestinal: normoactive bowel sounds, soft, non-tender Integumentary: normal Extremities: no cyanosis, no edema Neurologic: non-focal exam, pupils equal and round Psychiatric: other (Agitated.) CBC and BMP: 01/23/20 14:57 01/23/20 10:55 ABG, PT/INR, D-dimer: PT/INR, D-dimer PT 17.1 Sec. (12.2-14.9) H 01/20/20 09:09 INR 1.36 (0.87-1.13) H 01/20/20 09:09 D-Dimer 5313.50 ng/mlDDU (0-234) H 01/19/20 00:15 Abnormal lab findings: Abnormal Labs 01/18/20 01/18/20 01/19/20 21:38 21:38 00:15 WBC RBC 3.34 L Hgb 9.0 L Hct 27.4 L MCH 27 L RDW 17.1 H Lymph % (Auto) 10.1 L [place] % (Auto) 12.1 H Lymph # 1.0 L [place] # 1.2 H Seg Neutrophils % 77.4 H Seg Neutrophils # PT INR D-Dimer 5313.50 H Sodium Potassium 3.4 L Chloride BUN Creatinine Glucose 110 H Ferritin Lactate Dehydrogenase C-Reactive Protein NT-Pro-B Natriuret Pep Albumin 2.9 L 01/19/20 01/19/20 01/19/20 00:15 00:15 15:23 WBC RBC Hgb Hct MCH RDW Lymph % (Auto) [place] % (Auto) Lymph # [place] # Seg Neutrophils % Seg Neutrophils # PT INR D-Dimer Sodium Potassium Chloride BUN Creatinine Glucose 102 H Ferritin 375.4 H Lactate Dehydrogenase 321 H C-Reactive Protein 19.00 H NT-Pro-B Natriuret Pep 3012 H Albumin 01/20/20 01/20/20 01/20/20 09:09 09:09 09:09 WBC 13.0 H RBC 3.31 L Hgb 8.8 L Hct 27.0 L MCH 27 L RDW 16.6 H Lymph % (Auto) 6.3 L [place] % (Auto) Lymph # 0.8 L [place] # Seg Neutrophils % 88.1 H Seg Neutrophils # 11.4 H PT 17.1 H INR 1.36 H D-Dimer Sodium 147 H Potassium 3.5 L Chloride 108.2 H BUN Creatinine 0.4 L Glucose 159 H Ferritin Lactate Dehydrogenase C-Reactive Protein NT-Pro-B Natriuret Pep Albumin 01/22/20 09:45 WBC RBC Hgb Hct MCH RDW Lymph % (Auto) [place] % (Auto) Lymph # [place] # Seg Neutrophils % Seg Neutrophils # PT INR D-Dimer Sodium Potassium 2.9 L* Chloride BUN 6 L Creatinine 0.5 L Glucose 106 H Ferritin Lactate Dehydrogenase C-Reactive Protein NT-Pro-B Natriuret Pep Albumin Chest x-ray: report reviewed (Small loculated left sided pneumothorax, unchanged.)
[2020-01-23] MEDS: FUROSEMIDE 40 MG TAB PO SCH (10:53)
[2020-01-23] MEDS: amLODIPine 10 MG TAB PO SCH (10:54)
[2020-01-23] MEDS: carvediloL 3.125 MG TAB PO SCH ×2 (11:02→21:45)
[2020-01-23 11:14] LABS: Hematocrit 32.5 % (30.3-42.9); Hemoglobin 10.8 gm/dl (10.1-14.3)
[2020-01-23 11:26] LABS: Blood Urea Nitrogen 6 mg/dL (7-17); Calcium 8.5 mg/dL (8.4-10.2); Hemolysis Index 6
[2020-01-23 11:27] LABS: BUN/Creatinine Ratio 10
--- NOTE | 2020-01-23 14:35 | Progress Note ---
Assessment and Plan Cultures: COVID PCR: Negative 01/19/2020 blood culture: no growth 01/22/2020 L pleural fluid: negative A/P: 89-year-old female, senior living resident with hypertension, CHF, dementia admitted to the hospital with altered mental status. She was found to be slightly hypoxic by EMS: #Left lower lobe pneumonia v/s left pleural effusion. BNP 3012, procalcitonin 0.24, CRP 19.0. COVID PCR is negative. Repeat procal is <0.05. 01/22/2020 L thoracentesis with: 7 WBC, 19K RBC, unlikely infectious. Pulmonary following. #Acute encephalopathy/altered mental status: baseline dementia, seems to be at baseline. UA and urine culture ordered but not collected. #Elevated d-dimer: DVT scan negative. #Small pneumothorax Recs: Left pleural fluid not suggestive of infectious process. Abx stopped. Paul Shearer MD, FACP [facility] ([facility]) C: [phone] O: [phone] F: [phone] Subjective Date of service: 01/23/20 Interval history: No fever. No respiratory distress. On room air. Objective - Exam Narrative Exam: Physical Exam: Constitutional: Awake, confused, no distress Head, Ears, Nose: Normocephalic, atraumatic. External ears, nose normal Eyes: Conjunctivae/corneas clear. No icterus. No ptosis. Neck: Supple, no meningeal signs Oral: Unable to examine Cardiovascular: S1, S2 normal. Respiratory: fair b/l. no crackles GI: Soft, non-tender; bowel sounds normal. No peritoneal signs Musculoskeletal: No pedal edema, no cyanosis. Skin: No rash or abscess Hem/Lymphatic: No palpable cervical or supraclavicular nodes. No lymphangitis Psych: no agitation Neurological: Awake, confused, but answers basic questions - Constitutional Vitals: Vital Signs Temp Pulse Resp BP Pulse Ox 98.0 F 80 18 109/65 98 01/23/20 11:22 01/23/20 14:02 01/23/20 11:22 01/23/20 14:02 01/23/20 11:22 Temperature -Last 24 Hours Temperature 98.0 F Temperature 97.7 F Temperature 97.7 F Temperature 97.3 F - Labs CBC & Chem 7: 08/25/20 10:55 01/23/20 10:55 Labs: Abnormal lab results 01/23/20 Range/Units 10:55 BUN 6 L (7-17) mg/dL Glucose 103 H (65-100) mg/dL
[2020-01-23 15:31] LABS: Hematocrit 33.1 % (30.3-42.9); Hemoglobin 10.7 gm/dl (10.1-14.3)
[2020-01-23] MEDS: cefTRIAXone/NS 2 GM/100 ML 2 GM/100 ML BAG IV SCH (16:10)
[2020-01-23] MEDS ORDERED: QUEtiapine 25 MG TAB PO SCH (22:00)
[2020-01-23 23:20] LABS: Hematocrit 31.7 % (30.3-42.9); Hemoglobin 10.4 gm/dl (10.1-14.3)
[2020-01-24] MEDS: HEPARIN 5,000 UNIT/1 ML VIAL SUB-Q SCH ×2 (05:47→14:34)
[2020-01-24] MEDS: hydrALAZINE 25 MG TAB PO SCH ×3 (05:47→14:35)
[2020-01-24] MEDS: amLODIPine 10 MG TAB PO SCH (09:13)
[2020-01-24] MEDS: carvediloL 3.125 MG TAB PO SCH (09:13)
[2020-01-24] MEDS: FUROSEMIDE 40 MG TAB PO SCH (09:13)
[2020-01-24 10:01] LABS: Blood Urea Nitrogen 7 mg/dL (7-17); Calcium 8.5 mg/dL (8.4-10.2); Hemolysis Index 17
[2020-01-24 10:02] LABS: BUN/Creatinine Ratio 12
--- NOTE | 2020-01-24 11:37 | Consultation ---
History of Present Illness Consult date: 01/24/20 Consult reason: aortic stenosis History of present illness: This is an 89-year old F who resides in a assisted and has Dementia. She was admitted 5 days ago with left lower lobe pneumonia. COVID-19 test was negative. In addition, she was found to have a left pleural effusion and underwent a thoracentesis 3 days ago. A repeat chest x-ray reports a small loculated pneumothorax. Pulmonary is following. A cardiac consultation was requested for abnormal findings on her echocardiogram. 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 There was mild to moderate dilation on the atrium. Left ventricular systolic function is normal, ejection fraction 50-55%. Patient is currently resting in bed, alert with confusion and with bilateral wrist restraints in place. There is no report of unusual shortness of breath. 12-lead ECG is sinus rhythm with early repolarization. Past History Past Medical History: heart failure, hypertension, other (Dementia) Past Surgical History: Other Social history: other (Unknown) Family history: other (Unknown) Medications and Allergies Allergies Allergy/AdvReac Type Severity Reaction Status Date / Time amoxicillin Allergy Unknown Verified 12/08/19 12:14 codeine Allergy Unknown Verified 12/08/19 12:14 diphenhydramine Allergy Unknown Verified 12/08/19 12:14 pentazocine Allergy Unknown Verified 12/08/19 12:14 propoxyphene Allergy Unknown Verified 12/08/19 12:14 Sulfa (Sulfonamide Allergy Unknown Verified 12/08/19 12:14 Antibiotics) triamterene Allergy Unknown Verified 12/08/19 12:14 Active Meds: Active Medications Acetaminophen (Tylenol) 650 mg PO Q4H PRN PRN Reason: Pain MILD(1-3)/Fever >100.5/MURCIA Last Admin: 01/22/20 16:11 Dose: 650 mg Documented by: Amlodipine Besylate (Amlodipine) 10 mg PO QDAY [facility] Last Admin: 01/24/20 09:13 Dose: 10 mg Documented by: Carvedilol (Coreg) 3.125 mg PO BID [facility] Last Admin: 01/24/20 09:13 Dose: 3.125 mg Documented by: Furosemide (Lasix) 40 mg PO QDAY [facility] Last Admin: 01/24/20 09:13 Dose: 40 mg Documented by: Heparin Sodium (Porcine) (Heparin) 5,000 unit SUB-Q Q8HR [facility] Last Admin: 01/24/20 05:47 Dose: 5,000 unit Documented by: Hydralazine HCl (Apresoline) 25 mg PO Q8HR [facility] Last Admin: 01/24/20 05:47 Dose: 25 mg Documented by: Hydralazine HCl (Apresoline) 5 mg IV Q30MIN PRN PRN Reason: Hypertension Magnesium Hydroxide (Milk Of Magnesia) 30 ml PO Q4H PRN PRN Reason: Constipation Ondansetron HCl (Zofran) 4 mg IV Q8H PRN PRN Reason: Nausea And Vomiting Oxycodone/Acetaminophen (Percocet 5/325) 1 tab PO Q6H PRN PRN Reason: Pain, Moderate (4-6) Last Admin: 01/23/20 05:40 Dose: 1 tab Documented by: Quetiapine Fumarate (Seroquel) 25 mg PO QHS [facility] Last Admin: 01/23/20 21:45 Dose: 25 mg Documented by: Sodium Chloride (Sodium Chloride Flush Syringe 10 Ml) 10 ml IV BID [facility] Last Admin: 01/24/20 09:18 Dose: 10 ml Documented by: Sodium Chloride (Sodium Chloride Flush Syringe 10 Ml) 10 ml IV PRN PRN PRN Reason: LINE FLUSH Physical Examination Vital Signs Temp Pulse Resp BP Pulse Ox 97.8 F 68 16 144/71 99 01/18/20 21:28 01/18/20 21:28 01/18/20 21:28 01/18/20 21:28 01/18/20 21:28 General appearance: no acute distress HEENT: Positive: PERRL Cardiac: Positive: Reg Rate and Rhythm, Systolic Murmur Results 01/23/20 22:42 01/24/20 09:24 CBC 01/23/20 01/23/20 Range/Units 14:57 22:42 Hgb 10.7 10.4 (10.1-14.3) gm/dl Hct 33.1 31.7 (30.3-42.9) % Comprehensive Metabolic Panel 01/24/20 Range/Units 09:24 Sodium 143 (137-145) mmol/L Potassium 3.7 (3.6-5.0) mmol/L Chloride 103.3 (98-107) mmol/L Carbon Dioxide 27 (22-30) mmol/L BUN 7 (7-17) mg/dL Creatinine 0.6 (0.6-1.2) mg/dL Glucose 101 H (65-100) mg/dL Calcium 8.5 (8.4-10.2) mg/dL Assessment and Plan 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 LV ejection fraction 50-55%. Pneumonia Left pleural effusion s/p thoracentesis repeat cxr reports small loculated pneumothorax Dementia Rheumatic heart disease will be managed conservatively.
[2020-01-24 11:56] VITALS: BP 118/67
--- NOTE | 2020-01-24 13:17 | Progress Note ---
Assessment and Plan Cultures: COVID PCR: Negative 01/19/2020 blood culture: no growth 01/22/2020 L pleural fluid: negative A/P: 89-year-old female, [facility] resident with hypertension, CHF, dementia admitted to the hospital with altered mental status. She was found to be slightly hypoxic by EMS: #Left lower lobe pneumonia v/s left pleural effusion. BNP 3012, procalcitonin 0.24, CRP 19.0. COVID PCR is negative. Repeat procal is <0.05. 01/22/2020 L thoracentesis with: 7 WBC, 19K RBC, unlikely infectious. Pulmonary following. #Acute encephalopathy/altered mental status: baseline dementia, seems to be at baseline. UA and urine culture ordered but not collected. #Elevated d-dimer: DVT scan negative. #Small pneumothorax Recs: remains off abx. ID will sign off. Paul Shearer MD, FACP [facility] ([facility]) C: [phone] O: [phone] F: [phone] Subjective Date of service: 01/24/20 Interval history: No fever. No respiratory distress. Confused Objective - Exam Narrative Exam: Physical Exam: Constitutional: Awake, confused, no distress Head, Ears, Nose: Normocephalic, atraumatic. External ears, nose normal Eyes: Conjunctivae/corneas clear. No icterus. No ptosis. Neck: Supple, no meningeal signs Oral: Unable to examine Cardiovascular: S1, S2 normal. Respiratory: fair b/l. no crackles GI: Soft, non-tender; bowel sounds normal. No peritoneal signs Musculoskeletal: No pedal edema, no cyanosis. Skin: No rash or abscess Hem/Lymphatic: No palpable cervical or supraclavicular nodes. No lymphangitis Psych: no agitation Neurological: Awake, confused, but answers basic questions - Constitutional Vitals: Vital Signs Temp Pulse Resp BP Pulse Ox 97.3 F L 82 20 118/67 96 01/24/20 11:38 01/24/20 11:38 01/24/20 11:38 01/24/20 11:38 01/24/20 11:38 Temperature -Last 24 Hours Temperature 97.3 F Temperature 98.0 F Temperature 97.7 F Temperature 97.6 F - Labs CBC & Chem 7: 01/23/20 22:42 01/24/20 09:24 Labs: Abnormal lab results 01/24/20 Range/Units 09:24 Glucose 101 H (65-100) mg/dL
[2020-01-24 14:11] LABS: Hematocrit 30.3 % (30.3-42.9); Hemoglobin 10.1 gm/dl (10.1-14.3); Mean Corpuscular HGB Conc 33 % (30-34); Mean Corpuscular Volume 80 fl (79-97); Platelet Count 339 K/mm3 (140-440); Red Blood Count 3.77 M/mm3 (3.65-5.03); Red Cell Distribution Width 17.7 % (13.2-15.2)
--- NOTE | 2020-01-24 14:29 | Progress Note ---
Assessment and Plan 89-year-old -[place]ine[place] female with known history of hypertension, CHF and dementia presents to the emergency room today with altered mental status, chest pain and shortness of breath. Patient was brought in by EMS from a [facility] facility. She was found to be Hypoxic. Patient unable to give any good history . Most of the information obtained by reviewing the chart. Patients chest xray on admission reported left sided pneumonia and left pleural effusion. Patient undergone left thoracentesis by interventional radiology. Patient developed small pneumothorax. Patient not symptomatic from that. It is very small pneumothorax does not warrant chest tube. Follow with repeat chest xray. Patient has history of heart failure, hypertension and dementia. Patients smoking history, alcohol history and drug history not known. Patient allergic to multiple medications. Amoxacillin, Codeine, Diphenhydramine, Pentazocin. Patients COVID test is negative. Patient afebrile and has leukocytosis. Patient is on ceftrioxane and zithromax. Pleural fluid is red and has numerous RBCs. Rest of the pleural fluid results pending. 01/23/20 Patient awake but confused. No acute respiratory distress. Patient is on 1 litre O2. O2 saturation 98%. Chest xray 01/23/20 reported small left loculated pneumothorax which is unchanged. - Patient Problems (1) Pneumonia Current Visit: Yes Status: Acute Plan to address problem: Patient is on ceftrioxane and zithromax. (2) Pleural effusion, left Current Visit: Yes Status: Acute Plan to address problem: Pleural fluid results pending. (3) Hypoxia Current Visit: Yes Status: Acute Plan to address problem: O2 supplementation 2 litres o2. ABGs on room air still pending. (4) Person under investigation for COVID-19 Current Visit: Yes Status: Acute Plan to address problem: COVID 19 test negative. (5) Pneumothorax, left Current Visit: Yes Status: Acute Plan to address problem: Repeat chest xray to day 01/23/20 reported small left loculated left pneumothorax unchanged. Subjective Date of service: 01/24/20 Interval history: Patient awake but confused. No acute respiratory distress. Patient is on 1 litre O2. O2 saturation 98%. Chest xray 01/23/20 reported small left loculated pneumothorax which is unchanged. Objective Vital Signs - 12hr 08/26/20 08/26/20 08/26/20 04:23 05:47 09:13 Temperature 98.0 F Pulse Rate 73 73 73 Respiratory 18 Rate Blood Pressure 136/80 136/80 136/80 O2 Sat by Pulse 95 Oximetry 01/24/20 11:38 Temperature 97.3 F L Pulse Rate 82 Respiratory 20 Rate Blood Pressure 118/67 O2 Sat by Pulse 96 Oximetry Constitutional: no acute distress, alert, agitated Eyes: non-icteric ENT: oropharynx moist Neck: supple, no lymphadenopathy Ascultation: Left: diminished breath sounds Cardiovascular: regular rate and rhythm Gastrointestinal: normoactive bowel sounds, soft, non-tender Integumentary: normal Extremities: no cyanosis, no edema Neurologic: non-focal exam, pupils equal and round Psychiatric: other (Agitated.) CBC and BMP: 01/24/20 13:35 01/24/20 09:24 ABG, PT/INR, D-dimer: PT/INR, D-dimer PT 17.1 Sec. (12.2-14.9) H 01/20/20 09:09 INR 1.36 (0.87-1.13) H 01/20/20 09:09 D-Dimer 5313.50 ng/mlDDU (0-234) H 01/19/20 00:15 Abnormal lab findings: Abnormal Labs 01/18/20 01/18/20 01/19/20 21:38 21:38 00:15 WBC RBC 3.34 L Hgb 9.0 L Hct 27.4 L MCH 27 L RDW 17.1 H Lymph % (Auto) 10.1 L [place] % (Auto) 12.1 H Lymph # 1.0 L [place] # 1.2 H Seg Neutrophils % 77.4 H Seg Neutrophils # PT INR D-Dimer 5313.50 H Sodium Potassium 3.4 L Chloride BUN Creatinine Glucose 110 H Ferritin Lactate Dehydrogenase C-Reactive Protein NT-Pro-B Natriuret Pep Albumin 2.9 L 01/19/20 01/19/20 01/19/20 00:15 00:15 15:23 WBC RBC Hgb Hct MCH RDW Lymph % (Auto) [place] % (Auto) Lymph # [place] # Seg Neutrophils % Seg Neutrophils # PT INR D-Dimer Sodium Potassium Chloride BUN Creatinine Glucose 102 H Ferritin 375.4 H Lactate Dehydrogenase 321 H C-Reactive Protein 19.00 H NT-Pro-B Natriuret Pep 3012 H Albumin 01/20/20 01/20/20 01/20/20 09:09 09:09 09:09 WBC 13.0 H RBC 3.31 L Hgb 8.8 L Hct 27.0 L MCH 27 L RDW 16.6 H Lymph % (Auto) 6.3 L [place] % (Auto) Lymph # 0.8 L [place] # Seg Neutrophils % 88.1 H Seg Neutrophils # 11.4 H PT 17.1 H INR 1.36 H D-Dimer Sodium 147 H Potassium 3.5 L Chlor[place] 108.2 H BUN Creatinine 0.4 L Glucose 159 H Ferritin Lactate Dehydrogenase C-Reactive Protein NT-Pro-B Natriuret Pep Albumin 01/22/20 01/23/20 01/24/20 09:45 10:55 09:24 WBC RBC Hgb Hct MCH RDW Lymph % (Auto) [place] % (Auto) Lymph # [place] # Seg Neutrophils % Seg Neutrophils # PT INR D-Dimer Sodium Potassium 2.9 L* Chloride BUN 6 L 6 L Creatinine 0.5 L Glucose 106 H 103 H 101 H Ferritin Lactate Dehydrogenase C-Reactive Protein NT-Pro-B Natriuret Pep Albumin 01/24/20 13:35 WBC RBC Hgb Hct MCH 27 L RDW 17.7 H Lymph % (Auto) [place] % (Auto) Lymph # [place] # Seg Neutrophils % Seg Neutrophils # PT INR D-Dimer Sodium Potassium Chloride BUN Creatinine Glucose Ferritin Lactate Dehydrogenase C-Reactive Protein NT-Pro-B Natriuret Pep Albumin
--- NOTE | 2020-01-24 14:55 | Discharge Summary ---
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 Chest x-ray suggestive for left lung pneumonia and e ffusion. COVID-19 test ordered and negative, continue to follow inflammatory markers and IV antibiotics for now. Patient underwent thoracentesis fluid analysis is pending. Small pneumothorax was identified post procedure. Also continues with hypokalemia being repleted. 01/19: patient more alert today but very confused. COVID 19 negative, cont to treat for bacterial PNA. assess for aspiration.. Discussed with daughter by phone 01/20: patient remains pleasantly confused, restrained. will follow 2d echo, ordered for thoracentesis 01/21: s/p thoracentesis and 2d echo today, will follow result. cont abx 01/22: Awaiting further data from fluid analysis and also repeat x-ray to ensure pneumothorax resolution. Pulmonary input is appreciated. Will anticipate discharge in a.m. if CBC and other electrolytes are stable with resolution of leukocytosis. Baseline dementia on restraints. Discussed with nursing staff about getting a sitter and she does not need restraints. Chest x-ray removed still with some mild residual pneumothorax no worsening respiratory status noted. 01/23: Patient is clinically stable cardiology was consulted to evaluate for severe aortic stenosis states that patient is not a candidate for surgical intervention. She has no acute respiratory failure at this time. She has been doing well off antibiotics. Fluid analysis noninfectious. Atypical chest pain secondary to Pleurtitis from LL PNEUMONIA Stable chronic diastolic Congestive HF Severe Aortic Stenosis- HC associated Pneumonia w/o sepsis -- Person under investigation for COVID-19 negative for COVID --Acute metabolic encephalopathy Possibly secondary to the underlying infection. Patient also has a baseline history of dementia. Will monitor mental status. -- Chest pain ? likely from LLL PNA We will monitor EKG and also check serial cardiac enzymes. Patient will cont on aspirin, sublingual nitroglycerin and IV morphine as needed for chest pain. -- Acute Hypoxic respiratory failure due to PNA and left pleural effusion Patient on oxygen and keep O2 saturation greater or equal to 94%. --Advanced dementia cont supportive care --Left pleural effusion, likely parapneumonic obtain 2d echo, order for thoracentesis consult pulmonary --CHF with unknown EF appears compensated, follow 2d echo --hypokalemia, replete --Pneumothorax small Disposition: [id number]/[place] Time spent for discharge: 35 minutes Core Measure Documentation - Palliative Care Palliative Care/ Comfort Measures: Not Applicable - Core Measures Any of the following diagnoses?: none Exam - Physical Exam Narrative exam: General appearance: Present: well-nourished, restrained - EENT Eyes: Present: PERRL, EOM intact. Absent: scleral icterus ENT: hearing intact, clear oral mucosa, dentition normal - Neck Neck: Present: supple, normal ROM - Respiratory Respiratory effort: normal Respiratory: left: diminished - Cardiovascular Rhythm: regular Heart Sounds: Present: S1 & S2. Absent: gallop, systolic murmur, diastolic murmur, rub - Extremities Extremities: no ischemia, pulses intact, No edema, Full ROM Peripheral Pulses: within normal limits - Abdominal General gastrointestinal: Present: soft, non-tender, non-distended, normal bowel sounds - Integumentary Integumentary: Present: clear, warm, dry. Absent: rash - Musculoskeletal Musculoskeletal: strength equal bilaterally - Psychiatric Psychiatric: no appropriate mood/affect, no intact judgment & insight, no memory intact, confused - Neurologic Neurologic: CNII-XII intact, no focal deficits, moves all extremities - Constitutional Vitals: Temp Pulse Resp BP Pulse Ox 97.3 F L 82 20 118/67 96 01/24/20 11:38 01/24/20 14:35 01/24/20 11:38 01/24/20 11:38 01/24/20 11:38 Plan Activity: advance as tolerated, fall precautions Diet: low fat, low salt Special Instructions: restrict fluid intake to (1200cc./day) Follow up with: PRIMARY CARE,MD [Primary Care Provider] - 7 Days MELANI LOPEZ MD [Staff Physician] - 7 Days ADRIAN FOFANA MD [Staff Physician] - 7 Days
== END 2020-01-24 18:00 | DRG 193 ==
LOC: ED 21:21 → 3A 01-19 00:34 → OBSVTOIN 01-19 09:28
PROVIDERS: ADMIT Internal Medicine Geriatric Medicine; ATTEND Internal Medicine
PROC: 0W9B3ZX Drainage of Left Pleural Cavity, Percutaneous Approach, Diagnostic (ICD-10-PCS; principal; 2020-01-22)
DX: J18.9 Pneumonia, unspecified organism (principal); G93.41 Metabolic encephalopathy; J96.01 Acute respiratory failure with hypoxia; J90 Pleural effusion, not elsewhere classified; I50.32 Chronic diastolic (congestive) heart failure; J93.9 Pneumothorax, unspecified; I11.0 Hypertensive heart disease with heart failure; F03.90 Unspecified dementia, unspecified severity, without behavioral disturbance, psychotic disturbance, mood disturbance, and anxiety; R79.1 Abnormal coagulation profile; I35.0 Nonrheumatic aortic (valve) stenosis; E87.6 Hypokalemia; Z88.1 Allergy status to other antibiotic agents; Z88.5 Allergy status to narcotic agent; Z88.2 Allergy status to sulfonamides; Z88.8 Allergy status to other drugs, medicaments and biological substances; Z20.828 Contact with and (suspected) exposure to other viral communicable diseases
CPT/HCPCS: 32555; 36415; 70450; 71045; 80048; 80053; 82728; 82947; 83605; 83615; 83735; 83880; 84145; 84160; 84484; 85014; 85018; 85025; 85027; 85379; 85610; 86140; 87040; 87116; 88112; 88305; 89051; 93005; 93306; 93970; G0378; J0456; J0696; J1100; J1644; J3480; J7040; J7042; J7050; U0003-CS